=== PATIENT | female | born 1955 | race Caucasian/White ===

== ENCOUNTER 2018-10-26 03:00 | Emergency (ER) | payer OTHER ==
--- NOTE | 2018-10-26 03:09 | ERPHSYRPT ---
- History of Present Illness Time Seen by Provider: 10/26/18 03:05 Source: patient, EMS Exam Limitations: no limitations Physician History: The patient is a 63-year-old female brought in by ambulance from home where she was reportedly very short of breath. She has known COPD. She is on 4 L of supplemental O2 by nasal cannula constantly. When first responders arrived, her O2 sat was 78%. Paramedics arrived and the patient was already on a nonrebreather with O2 sat about 95%. O2 sat on room air dropped down to 78%. The patient was given an albuterol breathing treatment before arrival to ER and is feeling much better now. She is wishing to go home. She was feeling tired yesterday. She denies nausea, vomiting, or diarrhea. She denies chest pain. Her past medical history significant for HTN, CHF, COPD, morbid obesity, and depression. Timing/Duration: today, gradual onset, improved (after breathing treatment) Activities at Onset: rest Severity of Dyspnea-Max: severe Severity of Dyspnea-Current: none Possible Cause: occasional episodes Modifying Factors: Improves With: nothing Associated Symptoms: wheezing Allergies/Adverse Reactions: adhesive tape Allergy (Verified 10/26/18 03:32) rash, breaks out Home Medications: Aspirin [Aspir-Low] 81 mg PO HS 06/10/15 [History] Escitalopram Oxalate [Lexapro] 20 mg PO HS 06/10/15 [History] Hydralazine HCl 10 mg PO BID 06/10/15 [History] Metoprolol Tartrate 50 mg [Lopressor 50 MG] 50 mg PO BID 06/10/15 [History ] Albuterol 2.5 mg/3 ml Neb [Proventil 2.5 mg/3 ml Neb] 2.5 mg IH QID [History] Docusate Sodium 100 mg [Colace 100 MG] 1 tab PO BID 10/26/18 [History] Furosemide 40 mg [Lasix 40 MG] 1 tab PO TID 10/26/18 [History] Gabapentin 300 mg PO HS 10/26/18 [History] Hx Tetanus, Diphtheria Vaccination/Date Given: Yes Hx Influenza Vaccination/Date Given: Yes Hx Pneumococcal Vaccination/Date Given: Yes - Review of Systems Constitutional: No Fever, No Chills Eyes: No Symptoms Ears, Nose, & Throat: No Symptoms Respiratory: Dyspnea, Dyspnea on Exertion (NICHOLS), Wheezing Cardiac: No Chest Pain, No Edema, No Syncope Abdominal/Gastrointestinal: No Abdominal Pain, No Nausea, No Vomiting, No Diarrhea Genitourinary Symptoms: No Dysuria Musculoskeletal: No Back Pain, No Neck Pain Skin: No Rash Neurological: No Dizziness, No Focal Weakness, No Sensory Changes Psychological: No Symptoms Endocrine: No Symptoms Hematologic/Lymphatic: No Symptoms Immunological/Allergic: No Symptoms All Other Systems: Reviewed and Negative - Past Medical History Pertinent Past Medical History: Yes Neurological History: No Pertinent History ENT History: No Pertinent History Cardiac History: Arrhythmia, Coronary Artery Disease, Hypertension Respiratory History: Asthma, Bronchitis, COPD, Pneumonia, Sleep Apnea Endocrine Medical History: No Pertinent History Musculoskeletal History: Arthritis GI Medical History: Hemorrhoids History: Renal Disease Psycho-Social History: Anxiety, Depression Female Reproductive Disorders: No Pertinent History Other Medical History: aspiration vomited- vent and coma 2010. right leg cellulitis in past. kidney disease no dialysis. o2 4 iters at all times - Past Surgical History Past Surgical History: Yes Neuro Surgical History: No Pertinent History Cardiac: No Pertinent History Respiratory: No Pertinent History Gastrointestinal: Hernia Repair Genitourinary: No Pertinent History Musculoskeletal: No Pertinent History Female Surgical History: No Pertinent History Other Surgical History: foot surg - Social History Smoking Status: Current every day smoker How long have you smoked: 48yrs Exposure to second hand smoke: Yes Drug Use: none Patient Lives Alone: No - Nursing Vital Signs Nursing Vital Signs: Initial Vital Signs Temperature 97.4 F 10/26/18 03:20 Pulse Rate 58 L 10/26/18 03:20 Respiratory Rate 18 10/26/18 03:20 Blood Pressure 95/65 10/26/18 03:20 O2 Sat by Pulse Oximetry 97 10/26/18 03:20 Pain Scale Pain Intensity 0 - Physical Exam General Appearance: no apparent distress, obese Eye Exam: PERRL/EOMI Ears, Nose, Throat Exam: hearing grossly normal Neck Exam: normal inspection, supple Respiratory Exam: normal breath sounds, No respiratory distress, No diminished breath sounds, No prolonged expirations, No wheezing Cardiovascular/Chest Exam: normal heart sounds, regular rate/rhythm Abdominal/Gastrointestinal Exam: soft, normal bowel sounds, No tenderness, No distention, No mass Rectal Exam: not done Extremity Exam: non-tender, normal range of motion, normal inspection, no calf tenderness, no pedal edema Neurologic Exam: alert, oriented x 3, cooperative, marine welder II-XII nml as tested, sensation nml, No motor deficits Skin Exam: normal color, warm, No dry SpO2 Interpretation: normal O2 Delivery: Nasal Cannula (4 L) - Course EKG Interpreted by Me: RATE, Sinus Rhythm, NORMAL AXIS, 1st degree AV Block, NORMAL QRS, NORMAL ST-T, Other (T waves in V1 and V2., comp to EKG from .) Ordered Tests: Active Orders 24 hr Category Date Time Status Trainmaster STAT Care 10/26/18 03:13 Active EKG-ER Only STAT Care 10/26/18 03:12 Active IV Insertion STAT Care 10/26/18 03:12 Active Oxygen-ED Only Nasal Cannula 4 lpm Care 10/26/18 03:12 Active Pulse Oximetry (ED) STAT Care 10/26/18 03:12 Active CHEST 2 VIEWS (PA AND LAT) Stat Exams 10/26/18 03:13 Taken CBC W DIFF Stat Lab 10/26/18 03:35 Completed CMP Stat Lab 10/26/18 03:35 Completed Lactic Acid Stat Lab 10/26/18 03:43 Completed NT PRO BNP Stat Lab 10/26/18 03:35 Completed TROPONIN Q3H Lab 10/26/18 03:35 Completed TROPONIN Q3H Lab 10/26/18 06:15 Ordered TROPONIN Q3H Lab 10/26/18 09:15 Ordered TROPONIN Q3H Lab 10/26/18 12:15 Ordered TROPONIN Q3H Lab 10/26/18 15:15 Ordered Peak Expiratory Flow Rate ONCE RT 10/26/18 04:01 Active Respiratory Nebulizer STAT RT 10/26/18 03:14 Completed Respiratory Therapy Assessment DAILY RT 10/26/18 04:01 Active Medication Summary Discontinued Medications Generic Name Dose Route Start Last Admin Trade Name Freq PRN Reason Stop Dose Admin Albuterol/Ipratropium 3 ml 10/26/18 03:12 10/26/18 03:57 Duoneb 0.5-3 Mg/3 Ml Neb IH 10/26/18 03:13 3 ml STAT ONE Administration Albuterol/Ipratropium Confirm 10/26/18 03:56 Duoneb 0.5-3 Mg/3 Ml Neb Administered 10/26/18 03:57 Dose 3 ml IH .STK-MED ONE Methylprednisolone Sodium Succinate 125 mg 10/26/18 03:12 10/26/18 03:34 Solu-Medrol 125 Mg IV 10/26/18 03:13 125 mg STAT ONE Administration Methylprednisolone Sodium Succinate Confirm 10/26/18 03:26 Solu-Medrol 125 Mg Administered 10/26/18 03:27 Dose 125 mg .ROUTE .STK-MED ONE Lab/Rad Data: Laboratory Result Diagrams 10/26/18 03:35 10/26/18 03:35 Laboratory Results 10/26/18 10/26/18 10/26/18 Range/Units 03:43 03:35 03:35 WBC (4.0-10.5) K/mm3 RBC (4.1-5.4) M/mm3 Hgb (12.0-16.0) gm/dl Hct (35-47) % MCV (78-100) fl MCH (26-32) pg MCHC (32-36) g/dl RDW (11.5-14.0) % Plt Count (150-450) K/mm3 MPV (6-9.5) fl Gran % (36.0-66.0) % Eos # (Auto) (0-0.5) Absolute Lymphs (auto) (1.0-4.6) Absolute Monos (auto) (0.0-1.3) Lymphocytes % (24.0-44.0) % Monocytes % (0.0-12.0) % Eosinophils % (0.00-5.0) % Basophils % (0.0-0.4) % Absolute Granulocytes (1.4-6.9) Basophils # (0-0.4) Sodium 142 (137-145) mmol/L Potassium 4.4 (3.5-5.1) mmol/L Chloride 106 (98-107) mmol/L Carbon Dioxide 31 H (22-30) mmol/L Anion Gap 10.0 (5-15) MEQ/L BUN 50 H (7-17) mg/dL Creatinine 2.29 H (0.52-1.04) mg/dL Estimated GFR 23.0 ML/MIN Glucose 132 H (74-106) mg/dL Lactic Acid 0.8 (0.4-2.0) Calcium 8.3 L (8.4-10.2) mg/dL Total Bilirubin 0.50 (0.2-1.3) mg/dL AST 75 H (14-36) U/L ALT 80 H (0-35) U/L Alkaline Phosphatase 75 (38-126) U/L Troponin I 0.312 H* (0.000-0.034) ng/mL NT-Pro-B Natriuret Pep 76253 H (0-900) pg/mL Serum Total Protein 6.8 (6.3-8.2) g/dL Albumin 3.7 (3.5-5.0) g/dL 10/26/18 Range/Units 03:35 WBC 6.1 (4.0-10.5) K/mm3 RBC 3.68 L (4.1-5.4) M/mm3 Hgb 11.8 L (12.0-16.0) gm/dl Hct 38.8 (35-47) % MCV 105.4 H (78-100) fl MCH 32.0 (26-32) pg MCHC 30.4 L (32-36) g/dl RDW 13.5 (11.5-14.0) % Plt Count 126 L (150-450) K/mm3 MPV 10.1 H (6-9.5) fl Gran % 69.8 H (36.0-66.0) % Eos # (Auto) 0.31 (0-0.5) Absolute Lymphs (auto) 1.01 (1.0-4.6) Absolute Monos (auto) 0.49 (0.0-1.3) Lymphocytes % 16.7 L (24.0-44.0) % Monocytes % 8.1 (0.0-12.0) % Eosinophils % 5.1 H (0.00-5.0) % Basophils % 0.3 (0.0-0.4) % Absolute Granulocytes 4.22 (1.4-6.9) Basophils # 0.02 (0-0.4) Sodium (137-145) mmol/L Potassium (3.5-5.1) mmol/L Chloride (98-107) mmol/L Carbon Dioxide (22-30) mmol/L Anion Gap (5-15) MEQ/L BUN (7-17) mg/dL Creatinine (0.52-1.04) mg/dL Estimated GFR ML/MIN Glucose (74-106) mg/dL Lactic Acid (0.4-2.0) Calcium (8.4-10.2) mg/dL Total Bilirubin (0.2-1.3) mg/dL AST (14-36) U/L ALT (0-35) U/L Alkaline Phosphatase (38-126) U/L Troponin I (0.000-0.034) ng/mL NT-Pro-B Natriuret Pep (0-900) pg/mL Serum Total Protein (6.3-8.2) g/dL Albumin (3.5-5.0) g/dL - Progress Progress: improved Blood Culture(s) Obtained: No Antibiotics given: No Counseled pt/family regarding: lab results, diagnosis, rad results - Departure Time of Disposition: 05:34 Departure Disposition: Transfer (transfer to [facility] per Dr Bonilla) Clinical Impression: Elevated troponin, CHF (congestive heart failure), COPD (chronic obstructive pulmonary disease), Renal failure Condition: Stable Critical Care Time: No Referrals: DIANA RICHARDS [Primary Care Provider] - Instructions: Heart Failure, Chronic Obstructive Pulmonary Disease
[2018-10-26] MEDS ORDERED: DUONEB 0.5-3 MG/3 ml Neb IH ONE ×2 (03:12→03:56)
[2018-10-26] MEDS ORDERED: solu-MEDROL 125 MG IV ONE (03:12)
[2018-10-26] MEDS ORDERED: solu-MEDROL 125 MG ONE (03:26)
[2018-10-26 03:37] LABS: BASOPHIL % 0.3 % (0.0-0.4); Basophil (Absolute #) 0.02 (0-0.4); Eosinophil % 5.1 % (0.00-5.0); Eosinophil (Absolute #) 0.31 (0-0.5); Granulocyte Absolute (ANC) 4.22 (1.4-6.9); Granulocytes % 69.8 % (36.0-66.0); Hematocrit 38.8 % (35-47); Hemoglobin 11.8 gm/dl (12.0-16.0); Lymphocyte (Absolute #) 1.01 (1.0-4.6); Lymphocytes % 16.7 % (24.0-44.0); Mean Cell Volume 105.4 fl (78-100); Mean Corpuscular Hgb Concent. 30.4 g/dl (32-36); Mean Platelet Volume 10.1 fl (6-9.5); Monocyte (Absolute #) 0.49 (0.0-1.3); Monocytes % 8.1 % (0.0-12.0); Platelet Count 126 K/mm3 (150-450); Red Blood Count 3.68 M/mm3 (4.1-5.4); Red Cell Distribution Width 13.5 % (11.5-14.0); White Blood Count 6.1 K/mm3 (4.0-10.5)
[2018-10-26 04:07] LABS: ALBUMIN 3.7 g/dL (3.5-5.0); BILIRUBIN,TOTAL 0.5 mg/dL (0.2-1.3); Calcium 8.3 mg/dL (8.4-10.2); Creatinine 1 2.29 mg/dL (0.52-1.04); Potassium 4.4 mmol/L (3.5-5.1); Total Protein 6.8 g/dL (6.3-8.2)
[2018-10-26] MEDS ORDERED: BABY ASPIRIN 81 MG CHEW PO ONE (05:40)
[2018-10-26] MEDS ORDERED: BABY ASPIRIN 81 MG CHEW ONE (05:45)
[2018-10-26 06:44] VITALS: BP 161/58; PULSE 56; O2SAT 94
--- NOTE | 2018-10-26 09:09 | XRAY ---
Indication: Short of breath. Abnormal EKG. Comparison: September 30, 2016. PA/lateral chest demonstrates large left effusion/atelectasis occupying at least 50% of the hemithorax but slightly less than before. Right lung is clear. Heart remains enlarged. Stable mediastinal/hilar calcified nodes. Bony thorax intact again with mild degenerative changes and dextroscoliosis. Impression: Cardiomegaly with large left effusion/atelectasis. Comment: Preliminary interpretation was made by [facility]. No discrepancy.
== END 2018-10-26 07:23 | disposition short-term general hospital (02) ==
LOC: ED 03:00
DX: R74.8 Abnormal levels of other serum enzymes (principal); I50.9 Heart failure, unspecified; J44.9 Chronic obstructive pulmonary disease, unspecified; N19 Unspecified kidney failure; I10 Essential (primary) hypertension; I25.10 Atherosclerotic heart disease of native coronary artery without angina pectoris; J45.909 Unspecified asthma, uncomplicated; G47.30 Sleep apnea, unspecified; M19.90 Unspecified osteoarthritis, unspecified site; F41.9 Anxiety disorder, unspecified; F32.9 Major depressive disorder, single episode, unspecified; E66.01 Morbid (severe) obesity due to excess calories; Z72.0 Tobacco use; Z79.899 Other long term (current) drug therapy; Z99.2 Dependence on renal dialysis
CPT/HCPCS: 36415; 71046; 80053; 83605; 83880; 84484; 85025; 93005; 93041; 94150; 94640; 96374; 99285; J2930; A9270-GY

== ENCOUNTER 2018-12-27 14:11 | Emergency (ER) | payer OTHER ==
[2018-12-27] MEDS ORDERED: Nitrostat 0.4 MG (ED) SL ONE ×2 (15:06→16:09)
[2018-12-27] MEDS ORDERED: NITRO-BID 2% UD PACKETS TOP ONE (15:06)
[2018-12-27] MEDS ORDERED: Zithromax 500 MG/ 250 ML NaCl Premix 500 MG/250 ML IVPB IV STA (15:08)
[2018-12-27] MEDS ORDERED: DUONEB 0.5-3 MG/3 ml Neb IH ONE ×2 (15:08→15:23)
[2018-12-27] MEDS ORDERED: ROCEPHIN 1 Gm-D5w 50 ml Bag** 1 G/50 ML IVPB IV STA (15:08)
--- NOTE | 2018-12-27 15:11 | ERPHSYRPT ---
- History of Present Illness Time Seen by Provider: 12/27/18 14:30 Historian: patient Exam Limitations: clinical condition Patient Subjective Stated Complaint: c/o chest pain for a couple of days. was at [facility] 1-1 1/2 months ago for a DVT in her Left leg. now experiencing chest pain. also c/o cough, prod with white phlegm. Triage Nursing Assessment: pt skin pale, warm and dry, resp easy. obese female with o2 @ 4L per n/c - portable o2 sat 94%. c/o CP 9/10, left upper chest pain that radiates into her back. moist cough noted. speech clear, A/O X4. Lungs CTA Physician History: PATIENT WITH A HISTORY OF DVT, PULMONARY EMBOLISM, COPD COMPLAINS OF LEFT SIDED CHEST PAIN X 3 DAYS ASSOCIATED WITH A PRODUCTIVE COUGH. STATES PAIN IS SHARP IN LEFT LATERAL CHEST EXACERBATED UPON INSPIRATION AND MOTION OF LEFT ARM. DIAGNOSED WITH PULMONARY EMBOLISM 1 MONTH AGO AND PLACED ONTO ELIQUIS. Timing/Duration: day(s) Activities at Onset: none Quality: sharpness, stabbing Location: other (LEFT LATERAL CHEST) Severity of Pain-Max: moderate Severity of Pain-Current: mild Modifying Factors: Improves With: breathing, coughing Associated Symptoms: other (MOVEMENT OF LEFT ARM) Prior Chest Pain/Cardiac Workup: pulmonary embolism Nitro Today/Relief: 0.4 mg x 2 Aspirin Treatment Today: no aspirin today Allergies/Adverse Reactions: adhesive tape Allergy (Verified 10/26/18 03:32) rash, breaks out Home Medications: Aspirin [Aspir-Low] 81 mg PO HS 06/10/15 [History] Escitalopram Oxalate [Lexapro] 20 mg PO HS 06/10/15 [History] Albuterol 2.5 mg/3 ml Neb [Proventil 2.5 mg/3 ml Neb] 2.5 mg IH QIDPRN PRN 05/21/16 [History] Docusate Sodium 100 mg [Colace 100 MG] 1 tab PO DAILY 10/26/18 [History] Furosemide 40 mg [Lasix 40 MG] 20 mg PO DAILY 10/26/18 [History] Gabapentin 300 mg PO HS 10/26/18 [History] Amlodipine Besylate 5 mg PO DAILY 12/27/18 [History] Apixaban [Eliquis] 5 mg PO BID 12/27/18 [History] Fluticasone/Vilanterol [Breo Ellipta 100-25 Mcg INH] 1 mcg IH DAILY 12/27/18 [ History] Hx Tetanus, Diphtheria Vaccination/Date Given: Yes Hx Influenza Vaccination/Date Given: No Hx Pneumococcal Vaccination/Date Given: No Immunizations Up to Date: Yes - Past Medical History Pertinent Past Medical History: Yes Neurological History: No Pertinent History ENT History: No Pertinent History Cardiac History: Arrhythmia, Coronary Artery Disease, Hypertension Respiratory History: Asthma, Bronchitis, COPD, Pneumonia, Sleep Apnea Endocrine Medical History: No Pertinent History Musculoskeletal History: Arthritis GI Medical History: Hemorrhoids History: Renal Disease Psycho-Social History: Anxiety, Depression Female Reproductive Disorders: No Pertinent History Other Medical History: aspiration vomited- vent and coma 2010. right leg cellulitis in past. kidney disease no dialysis. o2 4 iters at all times - Past Surgical History Past Surgical History: Yes Neuro Surgical History: No Pertinent History Cardiac: No Pertinent History Respiratory: No Pertinent History Gastrointestinal: Hernia Repair Genitourinary: No Pertinent History Musculoskeletal: No Pertinent History Female Surgical History: No Pertinent History Other Surgical History: foot surg - Social History Smoking Status: Current every day smoker How long have you smoked: 48yrs Exposure to second hand smoke: Yes Drug Use: none Patient Lives Alone: No - Female History Hx Now: No - Nursing Vital Signs Nursing Vital Signs: Initial Vital Signs Temperature 98.7 F 12/27/18 14:12 Pulse Rate 68 12/27/18 14:12 Respiratory Rate 15 12/27/18 14:12 Blood Pressure 139/63 12/27/18 14:12 O2 Sat by Pulse Oximetry 94 L 12/27/18 14:12 Pain Scale Pain Intensity 5 - Physical Exam General Appearance: no apparent distress, alert Eye Exam: PERRL/EOMI, eyes nml inspection Ears, Nose, Throat Exam: normal ENT inspection, moist mucous membranes Neck Exam: normal inspection, non-tender, supple, full range of motion Respiratory Exam: normal breath sounds, chest tenderness (MARKED TENDERNESS LEFT LATERAL CHEST WALL. LEFT MID CLAVICULAR LINE T-3 TO T-4), lungs clear, No respiratory distress Cardiovascular Exam: regular rate/rhythm, normal heart sounds Gastrointestinal/Abdomen Exam: soft, normal bowel sounds, No tenderness, No mass Back Exam: normal inspection, No CVA tenderness, No vertebral tenderness Extremity Exam: normal inspection, normal range of motion Neurologic Exam: alert, oriented x 3, cooperative, normal mood/affect, sensation nml, No motor deficits Skin Exam: normal color, warm, dry SpO2 Interpretation: normal SpO2: 94 - Course EKG Interpreted by Me: RATE, NORMAL AXIS, 1st degree AV Block ([id number]) Ordered Tests: Active Orders 24 hr Category Date Time Status Manager Of Organizational Development STAT Care 12/27/18 15:06 Active EKG-ER Only STAT Care 12/27/18 15:06 Active IV Insertion STAT Care 12/27/18 15:06 Active Oxygen-ED Only Nasal Cannula 2 lpm Care 12/27/18 15:06 Active CHEST 1 VIEW (PORTABLE) Stat Exams 12/27/18 15:06 Completed BLOOD CULTURE Stat Lab 12/27/18 16:23 Received CBC W DIFF Stat Lab 12/27/18 14:45 Completed CMP Routine Lab 12/27/18 14:45 Completed MAGNESIUM Routine Lab 12/27/18 14:45 Completed NT PRO BNP Routine Lab 12/27/18 14:45 Completed PROTIME WITH INR Stat Lab 12/27/18 14:45 Completed TROPONIN Q3H Lab 12/27/18 14:45 Completed TROPONIN Q3H Lab 12/27/18 18:50 Completed TROPONIN Q3H Lab 12/27/18 21:15 Ordered TROPONIN Q3H Lab 12/28/18 00:15 Ordered TROPONIN Q3H Lab 12/28/18 03:15 Ordered Peak Expiratory Flow Rate ONCE RT 12/27/18 15:30 Active Respiratory Nebulizer STAT RT 12/27/18 15:09 Completed Respiratory Therapy Assessment DAILY RT 12/27/18 15:29 Active Medication Summary Generic Name Dose Route Start Last Admin Trade Name Freq PRN Reason Stop Dose Admin Sodium Chloride 1,000 mls @ 20 mls/hr 12/27/18 15:15 12/27/18 16:13 Sodium Chloride 0.9% 1000 Ml IV 01/26/19 15:14 20 mls/hr .Q24H DARON Administration Discontinued Medications Generic Name Dose Route Start Last Admin Trade Name Freq PRN Reason Stop Dose Admin Albuterol/Ipratropium 3 ml 12/27/18 15:08 12/27/18 15:26 Duoneb 0.5-3 Mg/3 Ml Neb IH 12/27/18 15:09 3 ml STAT ONE Administration Albuterol/Ipratropium Confirm 12/27/18 15:23 Duoneb 0.5-3 Mg/3 Ml Neb Administered 12/27/18 15:24 Dose 3 ml IH .STK-MED ONE Ceftriaxone Sodium/Dextrose 1 g in 50 mls @ 100 mls/hr 12/27/18 15:08 18:08 Rocephin 1 Gm-D5w 50 Ml Bag IV 12/27/18 15:37 Infused STAT STA Infusion Azithromycin 500 mg in 250 mls @ 250 mls/hr 12/27/18 15:08 12/27/18 18:09 Zithromax 500 Mg/ 250 Ml Nacl Premix IV 12/27/18 16:07 Infused STAT STA Infusion Azithromycin Confirm 12/27/18 16:09 Zithromax 500 Mg/ 250 Ml Nacl Premix Administered 12/27/18 16:10 Dose 500 mg in 250 mls @ ud IV .STK-MED ONE Ceftriaxone Sodium/Dextrose Confirm 12/27/18 16:09 Rocephin 1 Gm-D5w 50 Ml Bag Administered 12/27/18 16:10 Dose 1 g in 50 mls @ ud IV .STK-MED ONE Nitroglycerin 0.4 mg 12/27/18 15:06 12/27/18 16:11 Nitrostat 0.4 Mg (Ed) SL 12/27/18 15:07 0.4 mg STAT ONE Administration Nitroglycerin 1 gm 12/27/18 15:06 12/27/18 16:11 Nitro-Bid 2% Ud Packets TOP 12/27/18 15:07 1 gm STAT ONE Administration Nitroglycerin Confirm 12/27/18 16:08 Nitro-Bid 2% Ud Packets Administered 12/27/18 16:09 Dose 1 gm .ROUTE .STK-MED ONE Nitroglycerin Confirm 12/27/18 16:09 Nitrostat 0.4 Mg (Ed) Administered 12/27/18 16:10 Dose 0.4 mg SL .STK-MED ONE Lab/Rad Data: Laboratory Result Diagrams 12/27/18 14:45 12/27/18 14:45 Laboratory Results 12/27/18 12/27/18 12/27/18 Range/Units 18:50 15:52 14:45 WBC (4.0-10.5) K/mm3 RBC (4.1-5.4) M/mm3 Hgb (12.0-16.0) gm/dl Hct (35-47) % MCV (78-100) fl MCH (26-32) pg MCHC (32-36) g/dl RDW (11.5-14.0) % Plt Count (150-450) K/mm3 MPV (6-9.5) fl Gran % (36.0-66.0) % Eos # (Auto) (0-0.5) Absolute Lymphs (auto) (1.0-4.6) Absolute Monos (auto) (0.0-1.3) Lymphocytes % (24.0-44.0) % Monocytes % (0.0-12.0) % Eosinophils % (0.00-5.0) % Basophils % (0.0-0.4) % Absolute Granulocytes (1.4-6.9) Basophils # (0-0.4) PT (9.95-12.35) SECONDS INR (0.8-3.0) Sodium 137 (137-145) mmol/L Potassium 4.7 (3.5-5.1) mmol/L Chloride 96 L (98-107) mmol/L Carbon Dioxide 31 H (22-30) mmol/L Anion Gap 13.6 (5-15) MEQ/L BUN 37 H (7-17) mg/dL Creatinine 2.35 H (0.52-1.04) mg/dL Estimated GFR 22.3 ML/MIN Glucose 85 (74-106) mg/dL Calcium 8.4 (8.4-10.2) mg/dL Magnesium 2.2 (1.6-2.3) mg/dL Total Bilirubin 0.90 (0.2-1.3) mg/dL AST 18 (14-36) U/L ALT 8 (0-35) U/L Alkaline Phosphatase 51 (38-126) U/L Troponin I 0.033 0.027 (0.000-0.034) ng/mL NT-Pro-B Natriuret Pep 2630 H (0-900) pg/mL Serum Total Protein 6.8 (6.3-8.2) g/dL Albumin 3.2 L (3.5-5.0) g/dL Influenza Type A Ag NEGATIVE (NEGATIVE) Influenza Type B Ag NEGATIVE (NEGATIVE) RSV (PCR) NEGATIVE (Negative) 12/27/18 12/27/18 Range/Units 14:45 14:45 WBC 10.4 (4.0-10.5) K/mm3 RBC 3.19 L (4.1-5.4) M/mm3 Hgb 10.5 L (12.0-16.0) gm/dl Hct 33.6 L (35-47) % MCV 105.3 H (78-100) fl MCH 32.9 H (26-32) pg MCHC 31.3 L (32-36) g/dl RDW 12.2 (11.5-14.0) % Plt Count 212 (150-450) K/mm3 MPV 10.8 H (6-9.5) fl Gran % 79.9 H (36.0-66.0) % Eos # (Auto) 0.43 (0-0.5) Absolute Lymphs (auto) 0.82 L (1.0-4.6) Absolute Monos (auto) 0.83 (0.0-1.3) Lymphocytes % 7.9 L (24.0-44.0) % Monocytes % 8.0 (0.0-12.0) % Eosinophils % 4.1 (0.00-5.0) % Basophils % 0.1 (0.0-0.4) % Absolute Granulocytes 8.31 H (1.4-6.9) Basophils # 0.01 (0-0.4) PT 19.7 H (9.95-12.35) SECONDS INR 1.68 (0.8-3.0) Sodium (137-145) mmol/L Potassium (3.5-5.1) mmol/L Chloride (98-107) mmol/L Carbon Dioxide (22-30) mmol/L Anion Gap (5-15) MEQ/L BUN (7-17) mg/dL Creatinine (0.52-1.04) mg/dL Estimated GFR ML/MIN Glucose (74-106) mg/dL Calcium (8.4-10.2) mg/dL Magnesium (1.6-2.3) mg/dL Total Bilirubin (0.2-1.3) mg/dL AST (14-36) U/L ALT (0-35) U/L Alkaline Phosphatase (38-126) U/L Troponin I (0.000-0.034) ng/mL NT-Pro-B Natriuret Pep (0-900) pg/mL Serum Total Protein (6.3-8.2) g/dL Albumin (3.5-5.0) g/dL Influenza Type A Ag (NEGATIVE) Influenza Type B Ag (NEGATIVE) RSV (PCR) (Negative) - Progress Air Movement: fair Blood Culture(s) Obtained: Yes Antibiotics given: Yes Discussed with : Other (DISCUSSED WITH DR MARTE AT 1856 ACCEPTS TRANSFER TO [facility]) - Departure Time of Disposition: 20:45 Departure Disposition: Transfer Clinical Impression: ACUTE DYSPNEA, EXACERBATION COPD, LEFT PLERUAL EFFUSION Condition: Stable Critical Care Time: No Referrals: DIANA RICHARDS [Primary Care Provider] -
[2018-12-27] MEDS ORDERED: Sodium Chloride 0.9% 1000 ML 1,000 ML IV SCH (15:15)
[2018-12-27 15:25] LABS: BASOPHIL % 0.1 % (0.0-0.4); Basophil (Absolute #) 0.01 (0-0.4); Eosinophil % 4.1 % (0.00-5.0); Eosinophil (Absolute #) 0.43 (0-0.5); Granulocyte Absolute (ANC) 8.31 (1.4-6.9); Granulocytes % 79.9 % (36.0-66.0); Hematocrit 33.6 % (35-47); Hemoglobin 10.5 gm/dl (12.0-16.0); Lymphocyte (Absolute #) 0.82 (1.0-4.6); Lymphocytes % 7.9 % (24.0-44.0); Mean Cell Volume 105.3 fl (78-100); Mean Corpuscular Hemoglobin 32.9 pg (26-32); Mean Corpuscular Hgb Concent. 31.3 g/dl (32-36); Mean Platelet Volume 10.8 fl (6-9.5); Monocyte (Absolute #) 0.83 (0.0-1.3); Platelet Count 212 K/mm3 (150-450); Red Blood Count 3.19 M/mm3 (4.1-5.4); Red Cell Distribution Width 12.2 % (11.5-14.0); White Blood Count 10.4 K/mm3 (4.0-10.5)
[2018-12-27 15:40] LABS: ALBUMIN 3.2 g/dL (3.5-5.0); ANION GAP 13.6 MEQ/L (5-15); BILIRUBIN,TOTAL 0.9 mg/dL (0.2-1.3); Calcium 8.4 mg/dL (8.4-10.2); Creatinine 1 2.35 mg/dL (0.52-1.04); MAGNESIUM 2.2 mg/dL (1.6-2.3); Potassium 4.7 mmol/L (3.5-5.1); TROPONIN 0.027 ng/mL (0.000-0.034); Total Protein 6.8 g/dL (6.3-8.2)
[2018-12-27] MEDS ORDERED: NITRO-BID 2% UD PACKETS ONE (16:08)
[2018-12-27] MEDS ORDERED: ROCEPHIN 1 Gm-D5w 50 ml Bag** 1 G/50 ML IVPB IV ONE (16:09)
[2018-12-27] MEDS ORDERED: Zithromax 500 MG/ 250 ML NaCl Premix 500 MG/250 ML IVPB IV ONE (16:09)
[2018-12-27] MEDS ORDERED: Sodium Chloride 0.9% 1000 ML 1,000 ML ONE (16:09)
--- NOTE | 2018-12-27 16:10 | XRAY ---
Indication: Left-sided chest pain. Comparison: October 26, 2018. Portable chest again demonstrates large left effusion/atelectasis occupying 50% of hemithorax. Right lung remains clear. Heart remains enlarged. No new cardiopulmonary abnormalities.
[2018-12-27 16:30] LABS: INR 1.68 (0.8-3.0); PROTIME 19.7 SECONDS (9.95-12.35)
[2018-12-27 16:56] LABS: INFLUENZA A NEGATIVE (NEGATIVE); INFLUENZA B NEGATIVE (NEGATIVE); RESPIRATORY SYNCTIAL VIRUS NEGATIVE (Negative)
[2018-12-27 19:43] VITALS: BP 133/54; PULSE 78
[2018-12-27 20:45] VITALS: O2SAT 94
== END 2018-12-27 20:45 | disposition short-term general hospital (02) ==
LOC: ED 14:11
DX: R06.00 Dyspnea, unspecified (principal); J44.1 Chronic obstructive pulmonary disease with (acute) exacerbation; J90 Pleural effusion, not elsewhere classified; Z79.899 Other long term (current) drug therapy; I10 Essential (primary) hypertension; I25.10 Atherosclerotic heart disease of native coronary artery without angina pectoris; J45.909 Unspecified asthma, uncomplicated; G47.30 Sleep apnea, unspecified; M19.90 Unspecified osteoarthritis, unspecified site; F41.8 Other specified anxiety disorders; N28.9 Disorder of kidney and ureter, unspecified
CPT/HCPCS: 36000; 36415; 71045; 80053; 83735; 83880; 84484; 85025; 85610; 87040; 87631; 93005; 93041; 94150; 94640; 96360; 96361; 96365; 96368; 99285; J0456; J0696; A9270-GY

== ENCOUNTER 2018-12-30 18:47 | Emergency (ER) | payer OTHER ==
--- NOTE | 2018-12-30 19:18 | ERPHSYRPT ---
- History of Present Illness Time Seen by Provider: 12/30/18 19:10 Source: patient, family Exam Limitations: no limitations Patient Subjective Stated Complaint: pt seen at this facility thursday12/27/18 for shortness of breath, large plueral effusion and weakness, pt was transported to [facility] where she was discharged from their ER at 0100 on 12/28/18. pt returns today with increased weakness. today pt reports abdominal pain she states is related to previous hernia repair. Triage Nursing Assessment: pt is aox3, pt appears weak, pt unable to transfer from to [facility]. pt low grade temp at 100.7, pt resps are easy non labored, bilateral wheezes are heard upon auscultation, intermittent productive cough noted upon exam with small amount of clear sputum. pt radial pulses strong and regular, heart sounds strong and regular, pt abd obese, bowel sounds present and normoactive x4. cap refill < 3 seconds, slight non pitting edema noted to BLE, pedal pulses strong and equal, pt skin pale, warm to touch. pt mucous membranes appear dry. Physician History: 63 y/o morbidly obese white female with h/o htn, renal insufficiency, chf, left pleural effusion, copd presents to ED with worsening weakness, soa and right side abd pain. pt seen in this ED 12/27/18 with dx of copd exacerbation and left pleural effusion. pt denies cp. pt has had a dvt in past. no leg pain or swelling. pt is on eliquis, amlodipine, albuterol neb, lexapro, and lasix. pt and family want to be transferred to [facility] Timing/Duration: day(s) (several days) Severity: moderate Modifying Factors: Improves With: rest Associated Symptoms: abdominal pain (right side), shortness of breath, No nausea , No vomiting Allergies/Adverse Reactions: adhesive tape Allergy (Verified 12/30/18 18:59) rash, breaks out Home Medications: Aspirin [Aspir-Low] 81 mg PO HS 06/10/15 [History] Escitalopram Oxalate [Lexapro] 20 mg PO HS 06/10/15 [History] Albuterol 2.5 mg/3 ml Neb [Proventil 2.5 mg/3 ml Neb] 2.5 mg IH QIDPRN PRN 05/21/16 [History] Docusate Sodium 100 mg [Colace 100 MG] 1 tab PO DAILY 10/26/18 [History] Furosemide 40 mg [Lasix 40 MG] 20 mg PO DAILY 10/26/18 [History] Gabapentin 300 mg PO HS 10/26/18 [History] Amlodipine Besylate 5 mg PO DAILY 12/27/18 [History] Apixaban [Eliquis] 5 mg PO BID 12/27/18 [History] Fluticasone/Vilanterol [Breo Ellipta 100-25 Mcg INH] 1 mcg IH DAILY 12/27/18 [ History] Hx Tetanus, Diphtheria Vaccination/Date Given: No Hx Influenza Vaccination/Date Given: Yes Hx Pneumococcal Vaccination/Date Given: Yes Immunizations Up to Date: Yes - Review of Systems Constitutional: Weakness Eyes: No Symptoms Ears, Nose, & Throat: No Symptoms Respiratory: Dyspnea, No Cough, No Stridor, No Wheezing Cardiac: No Symptoms Abdominal/Gastrointestinal: Abdominal Pain (right side), No Nausea, No Vomiting , No Diarrhea Genitourinary Symptoms: No Symptoms, No Dysuria, No Frequency, No Hematuria Musculoskeletal: No Symptoms Skin: No Symptoms Neurological: No Symptoms Psychological: No Symptoms Endocrine: No Symptoms Hematologic/Lymphatic: No Symptoms Immunological/Allergic: No Symptoms All Other Systems: Reviewed and Negative - Past Medical History Pertinent Past Medical History: Yes Neurological History: No Pertinent History ENT History: No Pertinent History Cardiac History: Arrhythmia, Coronary Artery Disease, Hypertension Respiratory History: Asthma, Bronchitis, COPD, Pneumonia, Sleep Apnea Endocrine Medical History: No Pertinent History Musculoskeletal History: Arthritis GI Medical History: Hemorrhoids History: Renal Disease Psycho-Social History: Anxiety, Depression Female Reproductive Disorders: No Pertinent History Other Medical History: aspiration vomited- vent and coma 2010. right leg cellulitis in past. kidney disease no dialysis. o2 4 iters at all times - Past Surgical History Past Surgical History: Yes Neuro Surgical History: No Pertinent History Cardiac: No Pertinent History Respiratory: No Pertinent History Gastrointestinal: Hernia Repair Genitourinary: No Pertinent History Musculoskeletal: No Pertinent History Female Surgical History: No Pertinent History Other Surgical History: foot surg - Social History Smoking Status: Current every day smoker How long have you smoked: 48yrs Exposure to second hand smoke: Yes Drug Use: none Patient Lives Alone: No - Female History Hx Now: No - Nursing Vital Signs Nursing Vital Signs: Initial Vital Signs Temperature 100.7 F 12/30/18 18:49 Pulse Rate 72 12/30/18 18:49 Respiratory Rate 26 H 12/30/18 18:49 Blood Pressure 139/52 12/30/18 18:49 O2 Sat by Pulse Oximetry 96 12/30/18 18:49 Pain Scale Pain Intensity 0 - Physical Exam General Appearance: moderate distress, alert, obese Eye Exam: PERRL/EOMI Ears, Nose, Throat Exam: normal ENT inspection, moist mucous membranes Neck Exam: normal inspection, non-tender, supple, full range of motion Respiratory Exam: airway intact, diminished breath sounds (on left), No chest tenderness, No accessory muscle use, No rhonchi, No wheezing, No stridor Cardiovascular Exam: regular rate/rhythm, normal heart sounds, normal peripheral pulses Gastrointestinal/Abdomen Exam: soft, normal bowel sounds, tenderness (right side ), guarding, No rebound Pelvic Exam: not done Rectal Exam: not done Back Exam: normal inspection, normal range of motion, No CVA tenderness, No vertebral tenderness Extremity Exam: normal inspection, normal range of motion, pelvis stable Neurologic Exam: alert, oriented x 3, cooperative, charrer II-XII nml as tested Skin Exam: normal color, warm, dry Lymphatic Exam: No adenopathy SpO2 Interpretation: normal SpO2: 96 O2 Delivery: Room Air - Course Nursing assessment & vital signs reviewed: Yes EKG Interpreted by Me: RATE (70), Sinus Rhythm, 1st degree AV Block, Non- specific ST Changes, Other (no change from comparison EKGs dated 10/26/18 and ) Ordered Tests: Active Orders 24 hr Category Date Time Status Catheter-[place] STAT Care 12/30/18 19:20 Active EKG-ER Only STAT Care 12/30/18 19:20 Active IV Insertion STAT Care 12/30/18 19:20 Active Oxygen-ED Only Nasal Cannula 4 lpm Care 12/30/18 21:29 Active ABDOMEN AND PELVIS W/0 CONTRAS [CT] Stat Exams 12/30/18 19:19 Taken CHEST 1 VIEW (PORTABLE) Stat Exams 12/30/18 19:19 Taken AMYLASE Stat Lab 12/30/18 19:31 Completed CBC W DIFF Stat Lab 12/30/18 19:31 Completed CMP Stat Lab 12/30/18 19:31 Completed CULTURE,URINE Stat Lab 12/30/18 19:40 Received D-DIMER QUANTITATION Stat Lab 12/30/18 19:31 Completed LIPASE Stat Lab 12/30/18 19:31 Completed Lactic Acid Stat Lab 12/30/18 19:18 Completed NT PRO BNP Stat Lab 12/30/18 19:31 Completed TROPONIN Q3H Lab 12/30/18 19:32 Completed TROPONIN Q3H Lab 12/30/18 22:30 Ordered TROPONIN Q3H Lab 12/31/18 01:30 Ordered TROPONIN Q3H Lab 12/31/18 04:30 Ordered TROPONIN Q3H Lab 12/31/18 07:30 Ordered UA W/RFX UR CULTURE Stat Lab 12/30/18 19:40 Completed Medication Summary Generic Name Dose Route Start Last Admin Trade Name Freq PRN Reason Stop Dose Admin Sodium Chloride 1,000 mls @ 100 mls/hr 12/30/18 19:30 12/30/18 19:33 Sodium Chloride 0.9% 1000 Ml IV 01/29/19 19:29 100 mls/hr .Q10H DARON Administration Discontinued Medications Generic Name Dose Route Start Last Admin Trade Name Freq PRN Reason Stop Dose Admin Furosemide 40 mg 12/30/18 21:44 12/30/18 22:13 Lasix 40 Mg/4 Ml IV 12/30/18 21:45 40 mg STAT ONE Administration Furosemide Confirm 12/30/18 22:11 Lasix 40 Mg/4 Ml Administered 12/30/18 22:12 Dose 40 mg .ROUTE .STK-MED ONE Metronidazole 500 mg in 100 mls @ 200 mls/hr 12/30/18 21:30 12/30/18 22:08 Flagyl 500 Mg Ivpb IV 12/30/18 21:59 Infused STAT STA Infusion Metronidazole Confirm 12/30/18 21:34 Flagyl 500 Mg Ivpb Administered 12/30/18 21:35 Dose 500 mg in 100 mls @ ud IV .STK-MED ONE Morphine Sulfate 4 mg 12/30/18 21:16 12/30/18 21:25 Morphine Sulfate 4 Mg Inj IV 12/30/18 21:17 4 mg STAT ONE Administration Morphine Sulfate Confirm 12/30/18 21:22 Morphine Sulfate 4 Mg Inj Administered 12/30/18 21:23 Dose 4 mg .ROUTE .STK-MED ONE Ondansetron HCl 4 mg 12/30/18 19:20 12/30/18 19:33 Zofran 4 Mg/2 Ml Vial IV 12/30/18 19:21 4 mg STAT ONE Administration Ondansetron HCl Confirm 12/30/18 19:27 Zofran 4 Mg/2 Ml Vial Administered 12/30/18 19:28 Dose 4 mg .ROUTE .STK-MED ONE Lab/Rad Data: Laboratory Result Diagrams 12/30/18 19:31 12/30/18 19:31 Laboratory Results 12/30/18 12/30/18 12/30/18 Range/Units 19:40 19:32 19:31 WBC (4.0-10.5) K/mm3 RBC (4.1-5.4) M/mm3 Hgb (12.0-16.0) gm/dl Hct (35-47) % MCV (78-100) fl MCH (26-32) pg MCHC (32-36) g/dl RDW (11.5-14.0) % Plt Count (150-450) K/mm3 MPV (6-9.5) fl Gran % (36.0-66.0) % Eos # (Auto) (0-0.5) Absolute Lymphs (auto) (1.0-4.6) Absolute Monos (auto) (0.0-1.3) Lymphocytes % (24.0-44.0) % Monocytes % (0.0-12.0) % Eosinophils % (0.00-5.0) % Basophils % (0.0-0.4) % Absolute Granulocytes (1.4-6.9) Basophils # (0-0.4) D-Dimer 5607 H* (215-500) ng/mL Sodium (137-145) mmol/L Potassium (3.5-5.1) mmol/L Chloride (98-107) mmol/L Carbon Dioxide (22-30) mmol/L Anion Gap (5-15) MEQ/L BUN (7-17) mg/dL Creatinine (0.52-1.04) mg/dL Estimated GFR ML/MIN Glucose (74-106) mg/dL Lactic Acid (0.4-2.0) Calcium (8.4-10.2) mg/dL Total Bilirubin (0.2-1.3) mg/dL AST (14-36) U/L ALT (0-35) U/L Alkaline Phosphatase (38-126) U/L Troponin I 0.065 H* (0.000-0.034) ng/mL NT-Pro-B Natriuret Pep (0-900) pg/mL Serum Total Protein (6.3-8.2) g/dL Albumin (3.5-5.0) g/dL Amylase (30-110) U/L Lipase (23-300) U/L Urine Color YELLOW (YELLOW) Urine Appearance CLOUDY (CLEAR) Urine pH 5.0 (5-6) Ur Specific [place] 1.009 (1.005-1.025) Urine Protein 30 (Negative) Urine Ketones TRACE (NEGATIVE) Urine Blood MODERATE (0-5) Refugio/ul Urine Nitrite NEGATIVE (NEGATIVE) Urine Bilirubin NEGATIVE (NEGATIVE) Urine Urobilinogen 2 (0-1) mg/dL Ur Leukocyte Esterase NEGATIVE (NEGATIVE) Urine WBC (Auto) 3-5 (0-5) /HPF Urine RBC (Auto) 3-5 (0-2) /HPF U Hyaline Cast (Auto) 0-2 (0-2) /LPF U Epithel Cells (Auto) RARE (FEW) /HPF Urine Bacteria (Auto) RARE (NEGATIVE) /HPF Other Casts (Auto) NEGATIVE (NEGATIVE) /LPF Urine Culture Reflexed YES (NO) Urine Glucose NEGATIVE (NEGATIVE) mg/dL 12/30/18 12/30/18 12/30/18 Range/Units 19:31 19:31 19:18 WBC 11.3 H (4.0-10.5) K/mm3 RBC 3.04 L (4.1-5.4) M/mm3 Hgb 9.8 L (12.0-16.0) gm/dl Hct 31.5 L (35-47) % MCV 103.6 H (78-100) fl MCH 32.2 H (26-32) pg MCHC 31.1 L (32-36) g/dl RDW 12.2 (11.5-14.0) % Plt Count 193 (150-450) K/mm3 MPV 10.4 H (6-9.5) fl Gran % 82.6 H (36.0-66.0) % Eos # (Auto) 0.42 (0-0.5) Absolute Lymphs (auto) 0.72 L (1.0-4.6) Absolute Monos (auto) 0.81 (0.0-1.3) Lymphocytes % 6.4 L (24.0-44.0) % Monocytes % 7.2 (0.0-12.0) % Eosinophils % 3.7 (0.00-5.0) % Basophils % 0.1 (0.0-0.4) % Absolute Granulocytes 9.34 H (1.4-6.9) Basophils # 0.01 (0-0.4) D-Dimer (215-500) ng/mL Sodium 132 L (137-145) mmol/L Potassium 4.2 (3.5-5.1) mmol/L Chloride 93 L (98-107) mmol/L Carbon Dioxide 30 (22-30) mmol/L Anion Gap 13.2 (5-15) MEQ/L BUN 40 H (7-17) mg/dL Creatinine 2.50 H (0.52-1.04) mg/dL Estimated GFR 20.7 ML/MIN Glucose 86 (74-106) mg/dL Lactic Acid 1.0 (0.4-2.0) Calcium 8.7 (8.4-10.2) mg/dL Total Bilirubin 0.70 (0.2-1.3) mg/dL AST 16 (14-36) U/L ALT 9 (0-35) U/L Alkaline Phosphatase 68 (38-126) U/L Troponin I (0.000-0.034) ng/mL NT-Pro-B Natriuret Pep 3710 H (0-900) pg/mL Serum Total Protein 6.5 (6.3-8.2) g/dL Albumin 3.0 L (3.5-5.0) g/dL Amylase 36 (30-110) U/L Lipase 27 (23-300) U/L Urine Color (YELLOW) Urine Appearance (CLEAR) Urine pH (5-6) Ur Specific Buckley (1.005-1.025) Urine Protein (Negative) Urine Ketones (NEGATIVE) Urine Blood (0-5) Refugio/ul Urine Nitrite (NEGATIVE) Urine Bilirubin (NEGATIVE) Urine Urobilinogen (0-1) mg/dL Ur Leukocyte Esterase (NEGATIVE) Urine WBC (Auto) (0-5) /HPF Urine RBC (Auto) (0-2) /HPF U Hyaline Cast (Auto) (0-2) /LPF U Epithel Cells (Auto) (FEW) /HPF Urine Bacteria (Auto) (NEGATIVE) /HPF Other Casts (Auto) (NEGATIVE) /LPF Urine Culture Reflexed (NO) Urine Glucose (NEGATIVE) mg/dL - Progress Progress: improved, re-examined Progress Note: 12/30/18 22:[address] chauhan at [facility]. reviewed pt condition, hx, lab, ekg and xray findings. he accepts pt in transfer 12/30/18 22:19 cxr-worsening left pleural effusion and atelectasis; ct scan abd/pelvis- inflammation, stranding in area of cecum and ileocecal valve. ? crohns, cannot r /o appendicitis. Counseled pt/family regarding: lab results, diagnosis, rad results - Departure Departure Disposition: Transfer Clinical Impression: CHF (congestive heart failure), Colitis, Pleural effusion, left, Elevated d- dimer, Elevated troponin, Renal insufficiency Condition: Stable Critical Care Time: Yes Critical Care Time(excluding separately billable procedures): 30-74 minutes Referrals: DIANA RICHARDS [Primary Care Provider] - Instructions: Heart Failure
[2018-12-30] MEDS ORDERED: Zofran 4 MG/2 ML VIAL IV ONE (19:20)
[2018-12-30] MEDS ORDERED: Sodium Chloride 0.9% 1000 ML 1,000 ML ONE (19:27)
[2018-12-30] MEDS ORDERED: Zofran 4 MG/2 ML VIAL ONE (19:27)
[2018-12-30] MEDS ORDERED: Sodium Chloride 0.9% 1000 ML 1,000 ML IV SCH (19:30)
[2018-12-30 19:47] LABS: BASOPHIL % 0.1 % (0.0-0.4); Basophil (Absolute #) 0.01 (0-0.4); Eosinophil % 3.7 % (0.00-5.0); Eosinophil (Absolute #) 0.42 (0-0.5); Granulocyte Absolute (ANC) 9.34 (1.4-6.9); Granulocytes % 82.6 % (36.0-66.0); Hematocrit 31.5 % (35-47); Hemoglobin 9.8 gm/dl (12.0-16.0); Lymphocyte (Absolute #) 0.72 (1.0-4.6); Lymphocytes % 6.4 % (24.0-44.0); Mean Cell Volume 103.6 fl (78-100); Mean Corpuscular Hemoglobin 32.2 pg (26-32); Mean Corpuscular Hgb Concent. 31.1 g/dl (32-36); Mean Platelet Volume 10.4 fl (6-9.5); Monocyte (Absolute #) 0.81 (0.0-1.3); Monocytes % 7.2 % (0.0-12.0); Platelet Count 193 K/mm3 (150-450); Red Blood Count 3.04 M/mm3 (4.1-5.4); Red Cell Distribution Width 12.2 % (11.5-14.0); White Blood Count 11.3 K/mm3 (4.0-10.5)
[2018-12-30 19:51] LABS: Appearance CLOUDY (CLEAR); Bacteria RARE /HPF (NEGATIVE); Bilirubin NEGATIVE (NEGATIVE); Blood MODERATE Ery/ul (0-5); Epithelial Cells RARE /HPF (FEW); Glucose NEGATIVE (NEGATIVE); Hyaline Casts 0-2 /LPF (0-2); Ketones TRACE (NEGATIVE); Leukocyte Esterase NEGATIVE (NEGATIVE); Nitrite NEGATIVE (NEGATIVE); Protein,Urine Dip 30 (Negative); Specific Gravity 1.009 (1.005-1.025); Urobilinogen 2 mg/dL (0-1)
[2018-12-30 19:57] LABS: ANION GAP 13.2 MEQ/L (5-15); BILIRUBIN,TOTAL 0.7 mg/dL (0.2-1.3); Calcium 8.7 mg/dL (8.4-10.2); Creatinine 1 2.5 mg/dL (0.52-1.04); Potassium 4.2 mmol/L (3.5-5.1); Total Protein 6.5 g/dL (6.3-8.2)
[2018-12-30] MEDS ORDERED: MORPHINE SULFATE 4 MG INJ IV ONE (21:16)
[2018-12-30] MEDS ORDERED: MORPHINE SULFATE 4 MG INJ ONE (21:22)
[2018-12-30] MEDS ORDERED: FLAGYL 500 MG IVPB 500 MG/100 ML BAG IV STA (21:30)
[2018-12-30] MEDS ORDERED: FLAGYL 500 MG IVPB 500 MG/100 ML BAG IV ONE (21:34)
[2018-12-30] MEDS ORDERED: Lasix 40 MG/4 ML IV ONE (21:44)
[2018-12-30] MEDS ORDERED: Lasix 40 MG/4 ML ONE (22:11)
[2018-12-30] MEDS ORDERED: TYLENOL 325 MG PO ONE (22:26)
[2018-12-30] MEDS ORDERED: TYLENOL 325 MG ONE (22:28)
[2018-12-30 22:40] VITALS: BP 123/47; PULSE 76; O2SAT 95
--- NOTE | 2018-12-31 09:31 | XRAY ---
Indication: Short of breath. Comparison: December 27, 2018. Portable chest demonstrates increasing large left effusion/atelectasis occupying at least 75% of the hemithorax. Right lung clear. Heart remains enlarged.
--- NOTE | 2018-12-31 09:54 | XRAY ---
Indication: Abdominal pain. Fever. Multiple contiguous axial images obtained through the abdomen and pelvis without contrast as ordered. Comparison: December 17, 2018. Lung bases demonstrates increasing large left effusion with compressive atelectasis. Stable cardiomegaly and right lung calcified granulomas. Images through the abdomen and pelvis again limited due to patient body habitus. Noncontrasted stomach and bowel loops appear nonobstructed. Right lower quadrant now demonstrates 4.7 x 5 cm focus of induration, stranding, and fluid leveling. Difficult to ascertain if finding is inflamed bowel loop, walled off fluid collection/abscess, or a combination. Appendix not clearly seen and therefore appendicitis is not completely excluded. No other free fluid/air. [place] catheter empties the urinary bladder. Spleen remains enlarged today measuring 19 cm. Remaining liver, gallbladder, pancreas, spleen, adrenal glands, kidneys, ureters, bladder, and uterus appear unremarkable for noncontrast exam. Again minimal aortoiliac calcifications without AAA. Lower abdomen wall again demonstrates stable cutaneous/subcutaneous induration. Impression: 1. Again limited exam due to patient body habitus. 2. Abnormal right lower quadrant with now focus of induration, stranding, and fluid leveling as detailed. Rule out inflamed bowel/IBS, abscess, or combination. Appendicitis not completely excluded. 3. Again incidental splenomegaly and cardiomegaly. 4. Increasing large left lung effusion/atelectasis. CT DI 23.68
== END 2018-12-30 23:40 | disposition short-term general hospital (02) ==
LOC: ED 18:47
DX: I50.9 Heart failure, unspecified (principal); K52.9 Noninfective gastroenteritis and colitis, unspecified; J90 Pleural effusion, not elsewhere classified; R79.89 Other specified abnormal findings of blood chemistry
CPT/HCPCS: 36000; 36415; 51702; 71045; 74176; 80053; 81001; 82150; 83605; 83690; 83880; 84484; 85025; 85379; 87086; 93005; 96360; 96365; 96374; 96375; 99285; J1940; J2270; J2405; A9270-GY

== ENCOUNTER 2019-01-31 15:46 | Observation (INO) | payer OTHER ==
[2019-01-31] MEDS ORDERED: D5W/0.45NS W/ 20mEq KCl 1000 ML 1,000 ML IV SCH ×2 (16:00→20:00)
[2019-01-31] MEDS ORDERED: PROVENTIL COMMON CANISTER IH PRN (16:02)
[2019-01-31 16:54] LABS: BASOPHIL % 0.2 % (0.0-0.4); Basophil (Absolute #) 0.02 (0-0.4); Eosinophil % 3.2 % (0.00-5.0); Granulocyte Absolute (ANC) 7.95 (1.4-6.9); Granulocytes % 85.1 % (36.0-66.0); Hematocrit 27.9 % (35-47); Hemoglobin 8.7 gm/dl (12.0-16.0); Lymphocyte (Absolute #) 0.56 (1.0-4.6); Mean Corpuscular Hemoglobin 32.1 pg (26-32); Mean Corpuscular Hgb Concent. 31.2 g/dl (32-36); Mean Platelet Volume 10.3 fl (6-9.5); Monocyte (Absolute #) 0.51 (0.0-1.3); Monocytes % 5.5 % (0.0-12.0); Platelet Count 120 K/mm3 (150-450); Red Blood Count 2.71 M/mm3 (4.1-5.4); Red Cell Distribution Width 12.9 % (11.5-14.0); White Blood Count 9.3 K/mm3 (4.0-10.5)
[2019-01-31 17:10] LABS: ALBUMIN 3.5 g/dL (3.5-5.0); ANION GAP 16.9 MEQ/L (5-15); BILIRUBIN,TOTAL 0.6 mg/dL (0.2-1.3); Calcium 8.8 mg/dL (8.4-10.2); Creatinine 1 3.61 mg/dL (0.52-1.04); Potassium 3.3 mmol/L (3.5-5.1); Total Protein 7.3 g/dL (6.3-8.2)
[2019-01-31] MEDS ORDERED: PROVENTIL 2.5 MG/3 ML NEB IH PRN (17:42)
[2019-01-31] MEDS: FLAGYL 500 MG IVPB 500 MG/100 ML BAG IV SCH (18:25)
[2019-01-31] MEDS ORDERED: Advair Hfa 115/21 Common canister IH SCH (19:00)
[2019-01-31 21:32] LABS: Slide Review 1 YES
[2019-01-31] MEDS ORDERED: NEURONTIN 300 MG PO SCH (22:00)
[2019-01-31] MEDS ORDERED: Lexapro 10 MG PO SCH (22:00)
[2019-01-31] MEDS ORDERED: ECOTRIN 81 MG PO SCH (22:00)
[2019-01-31] MEDS: ELIQUIS 2.5 MG TABLET PO SCH (22:05)
[2019-01-31] MEDS: Zosyn 2.25 GM 2.25 GM in Dextrose 5%/Water IV Soln. 100ML PLUS BAG 100 ML IV SCH (22:05)
[2019-02-01] MEDS: NORVASC 5 MG PO SCH ×2 (03:59→10:27)
[2019-02-01] MEDS: Zosyn 2.25 GM 2.25 GM in Dextrose 5%/Water IV Soln. 100ML PLUS BAG 100 ML IV SCH (05:58)
[2019-02-01] MEDS: FLAGYL 500 MG IVPB 500 MG/100 ML BAG IV SCH ×2 (06:43→06:55)
[2019-02-01 08:17] VITALS: O2SAT 100
[2019-02-01 09:25] LABS: BASOPHIL % 0.1 % (0.0-0.4); Basophil (Absolute #) 0.01 (0-0.4); Eosinophil % 4.4 % (0.00-5.0); Eosinophil (Absolute #) 0.41 (0-0.5); Granulocyte Absolute (ANC) 7.78 (1.4-6.9); Granulocytes % 82.8 % (36.0-66.0); Hemoglobin 8.7 gm/dl (12.0-16.0); Lymphocyte (Absolute #) 0.61 (1.0-4.6); Lymphocytes % 6.5 % (24.0-44.0); Mean Cell Volume 102.6 fl (78-100); Mean Corpuscular Hgb Concent. 31.1 g/dl (32-36); Mean Platelet Volume 10.6 fl (6-9.5); Monocyte (Absolute #) 0.58 (0.0-1.3); Monocytes % 6.2 % (0.0-12.0); Platelet Count 133 K/mm3 (150-450); Red Blood Count 2.73 M/mm3 (4.1-5.4); Red Cell Distribution Width 12.8 % (11.5-14.0); White Blood Count 9.4 K/mm3 (4.0-10.5)
[2019-02-01 09:28] LABS: Mean Corpuscular Hemoglobin 31.8 pg (26-32)
[2019-02-01 09:40] LABS: ALBUMIN 3.4 g/dL (3.5-5.0); ANION GAP 15.5 MEQ/L (5-15); BILIRUBIN,TOTAL 0.7 mg/dL (0.2-1.3); Calcium 8.6 mg/dL (8.4-10.2); Creatinine 1 3.34 mg/dL (0.52-1.04); Potassium 4.3 mmol/L (3.5-5.1); Total Protein 7.3 g/dL (6.3-8.2)
[2019-02-01] MEDS ORDERED: Lexapro 10 MG PO SCH (10:00)
[2019-02-01] MEDS ORDERED: ECOTRIN 81 MG PO SCH (10:00)
[2019-02-01] MEDS ORDERED: Advair Hfa 115/21 Common canister IH SCH (10:00)
[2019-02-01] MEDS ORDERED: PROVENTIL COMMON CANISTER IH SCH (10:00)
[2019-02-01] MEDS ORDERED: Ventolin Hfa MDI IH SCH (10:00)
[2019-02-01] MEDS: ELIQUIS 2.5 MG TABLET PO SCH (10:27)
--- NOTE | 2019-02-01 11:04 | PCM.DCORD ---
- Discharge Discharge Date: 02/01/19 Disposition: Home, Self-Care Prescriptions: Continue Escitalopram Oxalate [Lexapro] 20 mg PO HS Aspirin [Aspir-Low] 81 mg PO HS Albuterol 2.5 mg/3 ml Neb [Proventil 2.5 mg/3 ml Neb] 2.5 mg IH QIDPRN PRN PRN Reason: Shortness Of Breath Gabapentin 300 mg PO HS Furosemide 40 mg [Lasix 40 MG] 40 mg PO BID Apixaban [Eliquis] 5 mg PO BID Amlodipine Besylate 5 mg PO DAILY Fluticasone/Vilanterol [Breo Ellipta 100-25 Mcg INH] 1 mcg IH DAILY Metolazone 2.5 mg [Zaroxolyn 2.5 MG] 1 tab PO 3XW Ergocalciferol (Vitamin D2) [Vitamin D] 1 cap PO WEEKLY Additional Instructions: ASK [employer] ABOUT PROCRIT INJECTIONS Follow up with: DIANA RICHARDS [Primary Care Provider] - 02/08/19 9:30 am
[2019-02-01 11:56] VITALS: BP 125/59; PULSE 71
== END 2019-02-01 13:08 | disposition home or self-care (01) ==
LOC: MED SURG 15:46
PROVIDERS: ADMIT Family Medicine; ATTEND Family Medicine
DX: E86.0 Dehydration (principal); R11.10 Vomiting, unspecified; N18.9 Chronic kidney disease, unspecified; D63.8 Anemia in other chronic diseases classified elsewhere
CPT/HCPCS: 36415; 80053; 85025; 87040; 94640; 94660; 94760; G0378; 94002; J2543; A9270-GY

== ENCOUNTER 2019-03-23 14:27 | Observation (INO) | payer OTHER ==
--- NOTE | 2019-03-23 15:03 | ERPHSYRPT ---
- History of Present Illness Time Seen by Provider: 03/23/19 14:50 Source: patient Exam Limitations: no limitations Patient Subjective Stated Complaint: Pt states "I have been in and out of [facility] for the past couple of weeks, I have low hemaglobin and I have been getting blood transfusions. Today I was more weak than normal, I know my hemaglobin is low." Triage Nursing Assessment: Pt presented through the front doors, alert and oriented X 3, skin pwd. Pt able to stand with assistance, speaking in clear full sentences. Pt has O2 on 4 lpm upon arrival. Physician History: 64 y/o morbidly obese white female, with known intra abd abscess and low hemaglobin, presents with chronic mild abdominal pain but worsening generalized weakness. pt required transfusion of prbcs as recent at just over 2 weeks ago. pt notes no active bleeding. she is soa with exertion and no cp. she has been seen at [facility] in [place], in for this twice in the last month to 2 months. Allergies/Adverse Reactions: adhesive tape Allergy (Verified 01/31/19 16:27) rash, breaks out Home Medications: Escitalopram Oxalate [Lexapro] 20 mg PO HS 06/10/15 [History] Albuterol 2.5 mg/3 ml Neb [Proventil 2.5 mg/3 ml Neb] 2.5 mg IH QIDPRN PRN 05/21/16 [History] Furosemide 40 mg [Lasix 40 MG] 40 mg PO BID 10/26/18 [History] Gabapentin 300 mg PO HS 10/26/18 [History] Amlodipine Besylate 5 mg PO DAILY 12/27/18 [History] Apixaban [Eliquis] 5 mg PO BID 12/27/18 [History] Fluticasone/Vilanterol [Breo Ellipta 100-25 Mcg INH] 1 mcg IH DAILY 12/27/18 [ History] Ergocalciferol (Vitamin D2) [Vitamin D] 1 cap PO WEEKLY 01/31/19 [History] Ferrous Sulfate [Iron] 325 mg PO DAILY 03/23/19 [History] Hx Tetanus, Diphtheria Vaccination/Date Given: Yes Hx Influenza Vaccination/Date Given: Yes Hx Pneumococcal Vaccination/Date Given: Yes Immunizations Up to Date: Yes - Review of Systems Constitutional: Weakness Eyes: No Symptoms Ears, Nose, & Throat: No Symptoms Respiratory: No Symptoms Cardiac: No Symptoms Abdominal/Gastrointestinal: Abdominal Pain (mild right lower quadrant) Genitourinary Symptoms: No Symptoms Musculoskeletal: No Symptoms Skin: No Symptoms Neurological: No Symptoms Psychological: No Symptoms Endocrine: No Symptoms Hematologic/Lymphatic: No Symptoms Immunological/Allergic: No Symptoms All Other Systems: Reviewed and Negative - Past Medical History Pertinent Past Medical History: Yes Neurological History: No Pertinent History ENT History: No Pertinent History Cardiac History: Arrhythmia, Congestive Heart Failure, Coronary Artery Disease, Hypertension Respiratory History: Asthma, Bronchitis, CHF, COPD, Pneumonia, Sleep Apnea Endocrine Medical History: No Pertinent History Musculoskeletal History: Arthritis GI Medical History: Hemorrhoids History: Renal Disease Psycho-Social History: Anxiety, Depression Female Reproductive Disorders: No Pertinent History Other Medical History: aspiration vomited- vent and coma 2010. right leg cellulitis in past. kidney disease no dialysis. o2 4.5 liters at all times. hx of colon perforation that healed w/o surgery - Past Surgical History Past Surgical History: Yes Neuro Surgical History: No Pertinent History Cardiac: No Pertinent History Respiratory: No Pertinent History Gastrointestinal: Hernia Repair Genitourinary: No Pertinent History Musculoskeletal: No Pertinent History Female Surgical History: No Pertinent History Other Surgical History: foot surg - Social History Smoking Status: Current every day smoker How long have you smoked: years Exposure to second hand smoke: Yes Drug Use: none Patient Lives Alone: No - Female History Hx Now: No - Nursing Vital Signs Nursing Vital Signs: Initial Vital Signs Temperature 97.9 F 03/23/19 14:38 Pulse Rate 68 03/23/19 14:38 Respiratory Rate 16 03/23/19 14:38 Blood Pressure 134/61 03/23/19 14:38 O2 Sat by Pulse Oximetry 100 03/23/19 14:38 Pain Scale Pain Intensity 0 - Physical Exam General Appearance: mild distress, alert, anxiety Eye Exam: PERRL/EOMI, eyes nml inspection, pale conjunctivae Ears, Nose, Throat Exam: normal ENT inspection, moist mucous membranes Neck Exam: normal inspection, non-tender, supple, full range of motion Respiratory Exam: normal breath sounds, lungs clear, airway intact, No chest tenderness, No respiratory distress Cardiovascular Exam: regular rate/rhythm, normal heart sounds, normal peripheral pulses Gastrointestinal/Abdomen Exam: soft, tenderness (mild right lower quad), No guarding, No rebound Pelvic Exam: not done Rectal Exam: not done Back Exam: normal inspection, normal range of motion, No CVA tenderness, No vertebral tenderness Extremity Exam: normal inspection, normal range of motion, pelvis stable Neurologic Exam: alert, oriented x 3, cooperative, talk show host II-XII nml as tested, normal mood/affect, nml cerebellar function, nml station & gait Skin Exam: warm, pale Lymphatic Exam: No adenopathy SpO2 Interpretation: normal SpO2: 100 O2 Delivery: Room Air Ordered Tests: Active Orders 24 hr Category Date Time Status IV Insertion STAT Care 03/23/19 15:30 Active ABDOMEN AND PELVIS W/0 CONTRAS [CT] Stat Exams 03/23/19 15:04 Completed AMYLASE Stat Lab 03/23/19 15:20 Completed CBC W DIFF Stat Lab 03/23/19 15:20 Completed CMP Stat Lab 03/23/19 15:20 Completed LIPASE Stat Lab 03/23/19 15:20 Completed Lactic Acid Stat Lab 03/23/19 15:26 Completed UA W/RFX UR CULTURE Stat Lab 03/23/19 15:03 Uncollected Transfer Order Routine Transfer 03/23/19 Ordered Lab/Rad Data: Laboratory Result Diagrams 03/23/19 15:20 03/23/19 15:20 Laboratory Results 03/23/19 03/23/19 03/23/19 Range/Units 15:26 15:20 15:20 WBC (4.0-10.5) K/mm3 RBC (4.1-5.4) M/mm3 Hgb (12.0-16.0) gm/dl Hct (35-47) % MCV (78-100) fl MCH (26-32) pg MCHC (32-36) g/dl RDW (11.5-14.0) % Plt Count (150-450) K/mm3 MPV (6-9.5) fl Gran % (36.0-66.0) % Eos # (Auto) (0-0.5) Absolute Lymphs (auto) (1.0-4.6) Absolute Monos (auto) (0.0-1.3) Lymphocytes % (24.0-44.0) % Monocytes % (0.0-12.0) % Eosinophils % (0.00-5.0) % Basophils % (0.0-0.4) % Absolute Granulocytes (1.4-6.9) Basophils # (0-0.4) Sodium (137-145) mmol/L Potassium (3.5-5.1) mmol/L Chloride (98-107) mmol/L Carbon Dioxide (22-30) mmol/L Anion Gap (5-15) MEQ/L BUN (7-17) mg/dL Creatinine (0.52-1.04) mg/dL Estimated GFR ML/MIN Glucose (74-106) mg/dL Lactic Acid 0.7 (0.4-2.0) Calcium (8.4-10.2) mg/dL Total Bilirubin (0.2-1.3) mg/dL AST (14-36) U/L ALT (0-35) U/L Alkaline Phosphatase (38-126) U/L Serum Total Protein (6.3-8.2) g/dL Albumin (3.5-5.0) g/dL Amylase (30-110) U/L Lipase (23-300) U/L ABO Group O Rh Factor POSITIVE Antibody Screen NEGATIVE (NEGATIVE) Crossmatch COMPATIBLE COMPATIBLE (COMPATIBLE) 03/23/19 03/23/19 Range/Units 15:20 15:20 WBC 3.9 L (4.0-10.5) K/mm3 RBC 2.40 L (4.1-5.4) M/mm3 Hgb 7.4 L (12.0-16.0) gm/dl Hct 23.9 L (35-47) % MCV 99.6 (78-100) fl MCH 30.8 (26-32) pg MCHC 31.0 L (32-36) g/dl RDW 14.0 (11.5-14.0) % Plt Count 132 L (150-450) K/mm3 MPV 9.9 H (6-9.5) fl Gran % 63.0 (36.0-66.0) % Eos # (Auto) 0.37 (0-0.5) Absolute Lymphs (auto) 0.79 L (1.0-4.6) Absolute Monos (auto) 0.25 (0.0-1.3) Lymphocytes % 20.4 L (24.0-44.0) % Monocytes % 6.5 (0.0-12.0) % Eosinophils % 9.6 H (0.00-5.0) % Basophils % 0.5 (0.0-0.4) % Absolute Granulocytes 2.44 (1.4-6.9) Basophils # 0.02 (0-0.4) Sodium 138 (137-145) mmol/L Potassium 3.4 L (3.5-5.1) mmol/L Chloride 95 L (98-107) mmol/L Carbon Dioxide 33 H (22-30) mmol/L Anion Gap 12.6 (5-15) MEQ/L BUN 21 H (7-17) mg/dL Creatinine 2.06 H (0.52-1.04) mg/dL Estimated GFR 25.8 ML/MIN Glucose 67 L (74-106) mg/dL Lactic Acid (0.4-2.0) Calcium 8.6 (8.4-10.2) mg/dL Total Bilirubin 0.50 (0.2-1.3) mg/dL AST 17 (14-36) U/L ALT 6 (0-35) U/L Alkaline Phosphatase 61 (38-126) U/L Serum Total Protein 6.0 L (6.3-8.2) g/dL Albumin 2.6 L (3.5-5.0) g/dL Amylase < 30 L (30-110) U/L Lipase 25 (23-300) U/L ABO Group Rh Factor Antibody Screen (NEGATIVE) Crossmatch (COMPATIBLE) - Progress Progress: unchanged, re-examined Progress Note: 03/23/19 16:51 ct scan abd/pelvis-no abscess mentioned in ct report. right lower quadrant 03/23/19 17:[address] segura. i reviewed pt hx, condition, lab and xray results with her. she accepts pt for observation. transfusion prbcs with lasix in between units Discussed with Dr.: Other (colton) Counseled pt/family regarding: lab results, diagnosis, rad results - Departure Departure Disposition: Observation Clinical Impression: Symptomatic anemia, Abdominal pain Condition: Stable Critical Care Time: Yes Critical Care Time(excluding separately billable procedures): 30-74 minutes Referrals: TIBURCIO WILLIAMSON MD [Primary Care Provider] -
[2019-03-23 15:29] LABS: BASOPHIL % 0.5 % (0.0-0.4); Basophil (Absolute #) 0.02 (0-0.4); Eosinophil % 9.6 % (0.00-5.0); Eosinophil (Absolute #) 0.37 (0-0.5); Granulocyte Absolute (ANC) 2.44 (1.4-6.9); Hematocrit 23.9 % (35-47); Hemoglobin 7.4 gm/dl (12.0-16.0); Lymphocyte (Absolute #) 0.79 (1.0-4.6); Lymphocytes % 20.4 % (24.0-44.0); Mean Cell Volume 99.6 fl (78-100); Mean Corpuscular Hemoglobin 30.8 pg (26-32); Mean Platelet Volume 9.9 fl (6-9.5); Monocytes % 6.5 % (0.0-12.0); Platelet Count 132 K/mm3 (150-450); White Blood Count 3.9 K/mm3 (4.0-10.5)
[2019-03-23 15:41] LABS: ALBUMIN 2.6 g/dL (3.5-5.0); ALKALINE PHOSPHATASE 61 U/L (38-126); AMYLASE < 30 U/L (30-110); ANION GAP 12.6 MEQ/L (5-15); BLOOD UREA NITROGEN 21 mg/dL (7-17); CHLORIDE 95 mmol/L (98-107); Calcium 8.6 mg/dL (8.4-10.2); Carbon Dioxide 33 mmol/L (22-30); Creatinine 1 2.06 mg/dL (0.52-1.04); Glucose 67 mg/dL (74-106); LIPASE 25 U/L (23-300); Potassium 3.4 mmol/L (3.5-5.1); SGOT/AST 17 U/L (14-36); SGPT/ALT 6 U/L (0-35); SODIUM 138 mmol/L (137-145)
[2019-03-23 16:17] LABS: ABO TYPING O; Antibody Screen NEGATIVE (NEGATIVE); RH TYPING POSITIVE
--- NOTE | 2019-03-23 16:43 | XRAY ---
Indication: Abdomen pain. Weakness. Multiple contiguous axial images obtained through the abdomen and pelvis without contrast as ordered. Comparison: December 30, 2018. Lung bases again demonstrates incompletely visualized left effusion with near complete left lower lobe atelectasis, right base fibrosis/scarring and right base calcified granuloma. Heart remains enlarged with slight increasing pericardial effusion. Again images through the abdomen and pelvis are limited again due to patient body habitus. Visualized noncontrasted stomach and bowel loops appear nonobstructed. Right lower quadrant again demonstrates induration and stranding less than before. Appendix identified and appears unremarkable for noncontrast exam. No free fluid/air. Spleen remains enlarged today measuring 17 cm. There remains a few tiny calcified hepatic granulomas. Remaining liver, gallbladder, pancreas, adrenal glands, kidneys, ureters, bladder, and uterus appear unremarkable for noncontrast exam. Stable minimal aortoiliac calcifications without AAA. Osseous structures again demonstrates mild degenerative changes throughout the spine and levorotoscoliosis. Stable large lower abdomen pannus. Impression: 1. Again limited exam due to patient body habitus. 2. Improved right lower quadrant induration/stranding. Normal appearing appendix. 3. Again incidental splenomegaly and evidence for old granulomatous disease. 4. Again incompletely visualized left effusion with left lower lobe atelectasis. 3. Stable cardiomegaly with increasing pericardial effusion. CTDI 23.69
[2019-03-23 17:10] LABS: CROSS MATCH (PRBC) COMPATIBLE (COMPATIBLE)
[2019-03-23] MEDS ORDERED: Zofran 4 MG/2 ML VIAL IV PRN (17:27)
[2019-03-23] MEDS ORDERED: Lasix 40 MG/4 ML IV PRN (17:27)
[2019-03-23] MEDS ORDERED: Sodium Chloride 0.9% 1000 ML 1,000 ML IV SCH (17:27)
[2019-03-23] MEDS ORDERED: TYLENOL 325 MG PO PRN (17:27)
--- NOTE | 2019-03-23 19:18 | PCM.NOTE ---
Date and Time: 03/23/191914 Subjective Assessment: Patient presented to ER with C/O extreme weakness . She is followed by Dr Zelaya and Dr Bryon Waddell for intra abdominal abcess that per patient was treated with IV and oral antibiotics and followed by CT and states "it has improved to the size of a pea",not seen in CTAbd/Pelvis done today in ER. She has had a slow bleed but negative recent EGD and Colonoscopy by Dr Baum at [facility] and has required blood transfusion 2 x at [facility] since December2018. She has a Hx of PE x2 and has been on Eliquis. She was to hold the Eliquis but took a dose yesterday "for fear of a blod clot comiing back". Her Hgb at Dr Zelaya's office last week was "8" and in the ER today down to 7.4. She is scheduled for an appt with Woodworking [employer],Dr Reese, at [facility] tomorrow at 1:[address]. [address] Reese ordered blood work but some of it is not covered by insurance and she could not have all of the tests done. Plan to transfuse 2 units PRBC ,1st unit is transfusing now.If stable in the morning patient will be able to make it to her appt. Dr Tono Waddell visited the patient this evening and does not feel patient should have another scope and that need to proceed with medical etiology work up . Dr Zelaya notified. OBJECTIVE DATA Vital Signs: Vital Signs - 24 hr Temp Pulse Resp BP Pulse Ox 03/23/19 18:40 98.4 F 67 18 121/60 99 03/23/19 18:15 98.3 F 67 18 116/56 99 03/23/19 17:45 98 03/23/19 17:17 100 03/23/19 17:01 98.2 F 68 18 128/50 100 03/23/19 16:01 98.1 F 70 18 99/48 100 03/23/19 15:19 97.8 F 69 16 130/60 99 03/23/19 14:38 97.9 F 68 16 134/61 100 Oxygen-Last 24 hours O2 Percentage 4 Liters = 36% O2 Percentage 4 Liters = 36% O2 Percentage 4 Liters = 36% Pain Assessment - Last Documented Pain Intensity 0 Pain Scale Used 0-10 Pain Scale Intake and Output: Intake & Output 03/21/19 03/22/19 03/23/19 03/24/19 11:59 11:59 11:59 11:59 Weight 109.769 kg Lab Results: Lab Results-Last 24 Hours 03/23/19 03/23/19 03/23/19 Range/Units 15:20 15:20 15:20 WBC 3.9 L (4.0-10.5) K/mm3 RBC 2.40 L (4.1-5.4) M/mm3 Hgb 7.4 L (12.0-16.0) gm/dl Hct 23.9 L (35-47) % MCV 99.6 (78-100) fl MCH 30.8 (26-32) pg MCHC 31.0 L (32-36) g/dl RDW 14.0 (11.5-14.0) % Plt Count 132 L (150-450) K/mm3 MPV 9.9 H (6-9.5) fl Gran % 63.0 (36.0-66.0) % Eos # (Auto) 0.37 (0-0.5) Absolute Lymphs (auto) 0.79 L (1.0-4.6) Absolute Monos (auto) 0.25 (0.0-1.3) Lymphocytes % 20.4 L (24.0-44.0) % Monocytes % 6.5 (0.0-12.0) % Eosinophils % 9.6 H (0.00-5.0) % Basophils % 0.5 (0.0-0.4) % Absolute Granulocytes 2.44 (1.4-6.9) Basophils # 0.02 (0-0.4) Sodium 138 (137-145) mmol/L Potassium 3.4 L (3.5-5.1) mmol/L Chloride 95 L (98-107) mmol/L Carbon Dioxide 33 H (22-30) mmol/L Anion Gap 12.6 (5-15) MEQ/L BUN 21 H (7-17) mg/dL Creatinine 2.06 H (0.52-1.04) mg/dL Estimated GFR 25.8 ML/MIN Glucose 67 L (74-106) mg/dL Lactic Acid (0.4-2.0) Calcium 8.6 (8.4-10.2) mg/dL Total Bilirubin 0.50 (0.2-1.3) mg/dL AST 17 (14-36) U/L ALT 6 (0-35) U/L Alkaline Phosphatase 61 (38-126) U/L Serum Total Protein 6.0 L (6.3-8.2) g/dL Albumin 2.6 L (3.5-5.0) g/dL Amylase < 30 L (30-110) U/L Lipase 25 (23-300) U/L ABO Group O Rh Factor POSITIVE Antibody Screen NEGATIVE (NEGATIVE) Crossmatch COMPATIBLE (COMPATIBLE) 03/23/19 03/23/19 Range/Units 15:20 15:26 WBC (4.0-10.5) K/mm3 RBC (4.1-5.4) M/mm3 Hgb (12.0-16.0) gm/dl Hct (35-47) % MCV (78-100) fl MCH (26-32) pg MCHC (32-36) g/dl RDW (11.5-14.0) % Plt Count (150-450) K/mm3 MPV (6-9.5) fl Gran % (36.0-66.0) % Eos # (Auto) (0-0.5) Absolute Lymphs (auto) (1.0-4.6) Absolute Monos (auto) (0.0-1.3) Lymphocytes % (24.0-44.0) % Monocytes % (0.0-12.0) % Eosinophils % (0.00-5.0) % Basophils % (0.0-0.4) % Absolute Granulocytes (1.4-6.9) Basophils # (0-0.4) Sodium (137-145) mmol/L Potassium (3.5-5.1) mmol/L Chloride (98-107) mmol/L Carbon Dioxide (22-30) mmol/L Anion Gap (5-15) MEQ/L BUN (7-17) mg/dL Creatinine (0.52-1.04) mg/dL Estimated GFR ML/MIN Glucose (74-106) mg/dL Lactic Acid 0.7 (0.4-2.0) Calcium (8.4-10.2) mg/dL Total Bilirubin (0.2-1.3) mg/dL AST (14-36) U/L ALT (0-35) U/L Alkaline Phosphatase (38-126) U/L Serum Total Protein (6.3-8.2) g/dL Albumin (3.5-5.0) g/dL Amylase (30-110) U/L Lipase (23-300) U/L ABO Group Rh Factor Antibody Screen (NEGATIVE) Crossmatch COMPATIBLE (COMPATIBLE) Radiology Exams: Radiology Procedures Category Date Time Status ABDOMEN AND PELVIS W/0 CONTRAS [CT] Stat Exams 03/23/19 15:04 Completed
[2019-03-23] MEDS ORDERED: PHENERGAN 25 MG PO PRN (19:46)
[2019-03-23 21:40] LABS: Appearance CLEAR (CLEAR); Bilirubin NEGATIVE (NEGATIVE); Blood SMALL Ery/ul (0-5); Glucose NEGATIVE (NEGATIVE); Ketones TRACE (NEGATIVE); Leukocyte Esterase NEGATIVE (NEGATIVE); Mucus SLIGHT /HPF (NEGATIVE); Nitrite NEGATIVE (NEGATIVE); Protein,Urine Dip NEGATIVE (Negative); Specific Gravity 1.006 (1.005-1.025); Urobilinogen NEGATIVE mg/dL (0-1)
[2019-03-23] MEDS ORDERED: NEURONTIN 300 MG PO SCH (22:00)
[2019-03-24 02:44] LABS: BASOPHIL % 0.2 % (0.0-0.4); Basophil (Absolute #) 0.01 (0-0.4); Eosinophil % 12.8 % (0.00-5.0); Eosinophil (Absolute #) 0.52 (0-0.5); Granulocyte Absolute (ANC) 2.08 (1.4-6.9); Granulocytes % 51.2 % (36.0-66.0); Hematocrit 27.7 % (35-47); Hemoglobin 8.8 gm/dl (12.0-16.0); Lymphocyte (Absolute #) 1.05 (1.0-4.6); Lymphocytes % 25.9 % (24.0-44.0); Mean Cell Volume 96.9 fl (78-100); Mean Corpuscular Hgb Concent. 31.8 g/dl (32-36); Mean Platelet Volume 9.6 fl (6-9.5); Monocytes % 9.9 % (0.0-12.0); Platelet Count 113 K/mm3 (150-450); Red Blood Count 2.86 M/mm3 (4.1-5.4); Red Cell Distribution Width 15.3 % (11.5-14.0); White Blood Count 4.1 K/mm3 (4.0-10.5)
[2019-03-24 02:46] LABS: Mean Corpuscular Hemoglobin 30.7 pg (26-32)
[2019-03-24 03:00] LABS: ALBUMIN 2.4 g/dL (3.5-5.0); ANION GAP 10.6 MEQ/L (5-15); BILIRUBIN,TOTAL 0.9 mg/dL (0.2-1.3); Calcium 8.4 mg/dL (8.4-10.2); Creatinine 1 1.91 mg/dL (0.52-1.04); Potassium 3.4 mmol/L (3.5-5.1); Total Protein 5.5 g/dL (6.3-8.2)
[2019-03-24] MEDS ORDERED: PATIENT OWN MEDICATION IH SCH (07:00)
[2019-03-24] MEDS ORDERED: PROVENTIL 2.5 MG/3 ML NEB IH PRN (07:07)
[2019-03-24 07:19] VITALS: BP 115/54; O2SAT 99
[2019-03-24 07:28] VITALS: PULSE 65
--- NOTE | 2019-03-24 09:55 | CONS ---
CONSULT DATE/TIME: 03/23/2019 1800 REASON FOR CONSULT: Anemia. HISTORY: This patient is a complicated patient known to our service who was recently admitted to [facility] with intra-abdominal abscess which was treated conservatively with antibiotics. She also had a GI bleed recently requiring blood transfusion. She underwent EGD and colonoscopy with gastroenterology per the patient but they did not find any source of the bleeding. She is on Eliquis for a recent pulmonary embolism with deep venous thrombosis. She did have outpatient labs which showed a worsening anemia with hemoglobin 7 with hemoglobin about 8 one week ago. She does not really notice any blood in the stools. Her stools are a little bit dark. She does take an iron supplement. She complains of severe fatigue and decreased appetite. She is not really having any abdominal pain. She has had some diarrhea. REVIEW OF SYSTEMS: Twelve systems reviewed and negative except for in the history of present illness. PAST MEDICAL HISTORY: Significant for congestive heart failure, chronic kidney disease, pulmonary embolism, deep venous thrombosis, intra-abdominal abscess. MEDICATIONS: Reviewed, see MAR. ALLERGIES: REVIEWED, SEE MAR. FAMILY HISTORY: Noncontributory. LAB DATA AND TESTS: CT scan shows improved right lower quadrant stranding. Laboratory studies showed hemoglobin 7. Creatinine 2.06, lactic acid 0.7, albumin 2.6. PHYSICAL EXAMINATION: GENERAL: No acute distress. HEENT: Sclera nonicteric. Extraocular movements intact. NECK: Supple. No JVD. CHEST: Nonlabored breathing. ABDOMEN: Soft, nondistended, nontender, obese. NEURO: Awake, alert and oriented. PSYCH: Appropriate mood and affect. ASSESSMENT: ANEMIA WITH RECENT INTRA-ABDOMINAL INFECTION: Her intra-abdominal infection appears to be resolved. She does already have recent EGD and colonoscopy. There is no sign of any substantial GI bleed at this time. She may have some degree anemia from very slow GI bleed with her Eliquis causing this chronic anemia or the anemia could be more medical in nature. I do not think repeating EGD or colonoscopy this soon from a negative exam would be of use right now. If further GI bleeding is suspected, the patient may benefit from capsule endoscopy. The patient is otherwise stable and there is no need for any urgent surgical intervention. I will follow.
[2019-03-24] MEDS ORDERED: FLUTICASONE IH SCH (10:00)
[2019-03-24] MEDS ORDERED: NON-FORMULARY ITEM (Escitalopram Oxalate [Lexapro] 20 MG) PO SCH (10:00)
[2019-03-24] MEDS ORDERED: Lexapro 10 MG PO SCH (10:00)
[2019-03-24] MEDS ORDERED: VILANTEROL IH SCH (10:00)
[2019-03-24] MEDS ORDERED: FEOSOL 325 MG PO SCH (10:00)
[2019-03-24] MEDS ORDERED: Protonix 40MG Tablet PO SCH (10:00)
[2019-03-24] MEDS ORDERED: NORVASC 5 MG PO SCH (10:00)
[2019-03-24] MEDS ORDERED: Lasix 40 MG PO SCH (10:00)
[2019-03-24] MEDS ORDERED: NEURONTIN 300 MG PO SCH (10:00)
--- NOTE | 2019-03-24 11:56 | SSS ---
DISCHARGE DIAGNOSES: 1) BLOOD LOSS ANEMIA. 2) HISTORY OF PULMONARY EMBOLISM. 3) HYPOXIA. 4) CONGESTIVE HEART FAILURE. 5) CHRONIC OBSTRUCTIVE PULMONARY DISEASE. 6) MORBID OBESITY. HOSPITAL COURSE: The patient is a 64 year-old white female who presented to the emergency room with complaints of weakness. She reports that she knows her hemoglobin is low. She has been having problems with anemia. She is on Eliquis for history of pulmonary embolism. However, she continues to have some issues with slow leaking of GI blood loss. She has had both upper and lower endoscopies performed previously. It is not a fast bleed but the patient has chosen to continue to take Eliquis due to her history of deep venous thrombosis and pulmonary embolism. The patient has an appointment to see her cherry sorter later on 03/24/2019. She is feeling better after a transfusion. Hemoglobin of 8.8. We feel it is prudent at this time to allow her to discharge to follow up with her hematology appointment later today. HOME MEDICATIONS: Lexapro 20 mg a day, Albuterol PRN, Furosemide 40 mg b.i.d., gabapentin 300 mg at night, amlodipine 5 mg a day, Eliquis 5 mg b.i.d., Breo Ellipta, vitamin D and iron. ALLERGIES: ADHESIVE TAPE. PHYSICAL EXAMINATION: Reveals a morbidly obese white female currently in no distress. VITAL SIGNS: On admission showed temperature 97.9F, pulse 68, respiratory rate 16 and blood pressure 134/61. O2 saturation 100% on supplemental oxygen. HEENT: Normocephalic, atraumatic. Pupils equal round reactive to light. Extraocular movements intact. Oropharynx is pink and moist. She is wearing oxygen per nasal cannula presently. CHEST: Clear. HEART: Regular rate and rhythm. ABDOMEN: Soft. No palpable masses. EXTREMITIES: Without cyanosis, clubbing or edema. NEUROLOGIC: The patient is alert and oriented x3. LAB DATA AND TESTS: The patient had CT scan again showing normal appearing appendix, incidental splenomegaly, incompletely visualized left effusion with left lower lobe atelectasis, stable cardiomegaly with increasing pericardial effusion. The patient's hemoglobin was noted to be 7.4 prior to transfusion. Urine was clear. Prealbumin was 7.78 which is low. Her sugar was 64, BUN 21, creatinine 1.91. Electrolytes were mildly abnormal. Liver enzymes were normal. Again, the patient is ready for discharge home at this time to follow up with cherry sorter this afternoon. We will see her in my office in a week for follow up and she is to call if she has any further problems in the interim.
[2019-03-24] MEDS ORDERED: Advair Hfa 115/21 Common canister IH SCH (19:00)
[2019-03-28] MEDS ORDERED: VITAMIN D2 PO SCH (10:00)
== END 2019-03-24 09:35 | disposition home or self-care (01) ==
LOC: ED 14:27 → MED SURG 17:24
PROVIDERS: ADMIT Family Medicine; ATTEND Family Medicine
DX: D50.0 Iron deficiency anemia secondary to blood loss (chronic) (principal); J44.9 Chronic obstructive pulmonary disease, unspecified; R09.02 Hypoxemia; I50.9 Heart failure, unspecified; E66.01 Morbid (severe) obesity due to excess calories; Z68.41 Body mass index [BMI] 40.0-44.9, adult; Z86.711 Personal history of pulmonary embolism; Z79.01 Long term (current) use of anticoagulants; Z79.899 Other long term (current) drug therapy
CPT/HCPCS: 36000; 36415; 36430; 74176; 80053; 81001; 82150; 83605; 83690; 84134; 85025; 86850; 86900; 86901; 86922; 93268; 94640; 94760; 99285; G0378; P9016; J1940; J2405; A9270-GY

== ENCOUNTER 2019-05-31 11:30 | Observation (INO) | payer OTHER ==
[2019-05-31] MEDS ORDERED: D5W/0.45NS W/ 20mEq KCl 1000 ML 1,000 ML IV SCH (12:00)
[2019-05-31 12:19] LABS: BASOPHIL % 0.2 % (0.0-0.4); Basophil (Absolute #) 0.01 (0-0.4); Eosinophil % 1.5 % (0.00-5.0); Eosinophil (Absolute #) 0.08 (0-0.5); Granulocyte Absolute (ANC) 4.07 (1.4-6.9); Granulocytes % 77.9 % (36.0-66.0); Hematocrit 23.3 % (35-47); Hemoglobin 7.1 gm/dl (12.0-16.0); Lymphocyte (Absolute #) 0.64 (1.0-4.6); Lymphocytes % 12.2 % (24.0-44.0); Mean Cell Volume 96.7 fl (78-100); Mean Corpuscular Hgb Concent. 30.5 g/dl (32-36); Mean Platelet Volume 9.9 fl (6-9.5); Monocyte (Absolute #) 0.43 (0.0-1.3); Monocytes % 8.2 % (0.0-12.0); Platelet Count 200 K/mm3 (150-450); Red Blood Count 2.41 M/mm3 (4.1-5.4); Red Cell Distribution Width 15.3 % (11.5-14.0); White Blood Count 5.2 K/mm3 (4.0-10.5)
[2019-05-31 12:30] LABS: Mean Corpuscular Hemoglobin 29.4 pg (26-32)
[2019-05-31 13:07] LABS: ALBUMIN 2.7 g/dL (3.5-5.0); BILIRUBIN,TOTAL 0.6 mg/dL (0.2-1.3); Calcium 8.7 mg/dL (8.4-10.2); Creatinine 1 2.23 mg/dL (0.52-1.04); Potassium 4.2 mmol/L (3.5-5.1); Total Protein 6.5 g/dL (6.3-8.2)
[2019-05-31 13:09] LABS: Iron 25 ug/dL (37-170); Iron Saturation 20 % (20-39); TIBC 128 ug/dL (265-462)
[2019-05-31] MEDS ORDERED: PHARMACY DOSING REQUEST MC ONE (14:12)
[2019-05-31] MEDS ORDERED: Venofer 100 MG/5 ML*** 200 MG in Sodium Chloride 0.9% 100 ML IVPB 100 ML IV SCH (14:30)
[2019-05-31] MEDS ORDERED: PROVENTIL 2.5 MG/3 ML NEB IH PRN (14:41)
[2019-05-31] MEDS: Sodium Chloride 0.9% 1000 ML 1,000 ML IV SCH ×2 (14:42→23:19)
[2019-05-31] MEDS ORDERED: Phenergan 25 MG INJ IV PRN (14:56)
[2019-05-31 15:35] LABS: ABO TYPING O; Antibody Screen NEGATIVE (NEGATIVE); RH TYPING POSITIVE
[2019-05-31 15:37] LABS: CROSS MATCH (PRBC) COMPATIBLE (COMPATIBLE)
[2019-05-31] MEDS: Pepcid 20 MG VIAL IV SCH (16:26)
[2019-05-31] MEDS: Lexapro 10 MG PO SCH (16:27)
[2019-05-31] MEDS ORDERED: Advair Hfa 115/21 Common canister IH SCH (19:00)
[2019-05-31] MEDS ORDERED: NEURONTIN 300 MG PO SCH (22:00)
[2019-06-01 00:25] LABS: Hematocrit 26.9 % (35-47); Hemoglobin 8.7 gm/dl (12.0-16.0)
[2019-06-01 02:13] LABS: RETICULOCYTE COUNT 1.05 % (0.58-2.38)
[2019-06-01 06:09] LABS: Hematocrit 25.9 % (35-47); Hemoglobin 8.2 gm/dl (12.0-16.0); Mean Cell Volume 91.5 fl (78-100); Mean Corpuscular Hgb Concent. 31.7 g/dl (32-36); Mean Platelet Volume 9.3 fl (6-9.5); Platelet Count 151 K/mm3 (150-450); Red Blood Count 2.83 M/mm3 (4.1-5.4); Red Cell Distribution Width 16.2 % (11.5-14.0); White Blood Count 4.3 K/mm3 (4.0-10.5)
[2019-06-01 06:14] LABS: Mean Corpuscular Hemoglobin 28.9 pg (26-32)
[2019-06-01 06:18] LABS: ALBUMIN 2.2 g/dL (3.5-5.0); ANION GAP 9.1 MEQ/L (5-15); BILIRUBIN,TOTAL 0.5 mg/dL (0.2-1.3); Calcium 8.2 mg/dL (8.4-10.2); Creatinine 1 1.99 mg/dL (0.52-1.04); Potassium 4.2 mmol/L (3.5-5.1); Total Protein 5.6 g/dL (6.3-8.2)
[2019-06-01] MEDS ORDERED: Advair Hfa 115/21 Common canister IH SCH (07:00)
[2019-06-01] MEDS ORDERED: PHARMACY DOSING REQUEST MC ONE (09:31)
[2019-06-01] MEDS ORDERED: NON-FORMULARY ITEM (Escitalopram Oxalate [Lexapro] 20 MG) PO SCH (10:00)
[2019-06-01] MEDS ORDERED: VITAMIN D2 PO SCH (10:00)
[2019-06-01] MEDS ORDERED: NON-FORMULARY ITEM (Famotidine [Pepcid] 40 MG) PO SCH (10:00)
[2019-06-01] MEDS ORDERED: Klor Con 10 MEQ PO SCH (10:00)
[2019-06-01] MEDS ORDERED: VILANTEROL IH SCH (10:00)
[2019-06-01] MEDS ORDERED: FLUTICASONE IH SCH (10:00)
[2019-06-01] MEDS ORDERED: FEOSOL 325 MG PO SCH (10:00)
[2019-06-01] MEDS: Pepcid 20 MG VIAL IV SCH (10:05)
[2019-06-01] MEDS: Lexapro 10 MG PO SCH (10:05)
--- NOTE | 2019-06-01 10:28 | SSS ---
DISCHARGE DIAGNOSES: 1) IRON DEFICIENCY ANEMIA. 2) CHRONIC RENAL INSUFFICIENCY. 3) DIABETES MELLITUS TYPE 2. 4) VOMITING AND DIARRHEA. HISTORY: The patient is a 64 year-old white female with chronic medical problems, multiple comorbidities and diabetes mellitus type 2. She recently had problems with nausea, vomiting and diarrhea which she presented to the office for. She looked quite disheveled and was offered to go to the hospital for IV infusion. The patient received IV fluids. On her evaluation was found to have a hemoglobin less than 8. She was brought into the hospital for observation stay and she will be given 2 units of packed red blood cells, further evaluation and management. PAST MEDICAL/SURGICAL HISTORY: Again significant for diabetes mellitus type 2, anemia. She had been in the hospital at [facility] a few months ago with an abscess on the colon which was treated with IV antibiotics and it eventually shrank to the point she was able to return home without surgery. The patient also has past medical history of depression and gastroesophageal reflux disease. HOME MEDICATIONS: Albuterol PRN, vitamin D, Lexapro 20 mg a day, famotidine 40 mg a day, iron 325 mg a day, Breo Ellipta inhaler, Lasix 40 mg b.i.d., gabapentin 300 mg at night, pantoprazole 40 mg a day, potassium 10 mEq a day, Phenergan on an as needed basis. ALLERGIES: ADHESIVE TAPE. PHYSICAL EXAMINATION: Revealed an obese, white female who again was quite disheveled in her appearance and appeared ill. Her vital signs on admission showed temperature 97F, pulse 71, respiratory rate 16 and blood pressure 130/57. O2 saturation 100%. HEENT: Normocephalic, atraumatic. Pupils equal round reactive to light. Extraocular movements intact. Oropharynx is pink and moist. NECK: Supple without lymphadenopathy, thyromegaly or JVD. CHEST: Clear to auscultation. HEART: Regular rate and rhythm. ABDOMEN: Revealed a palpable mass on the abdominal wall on the right side which is tender otherwise the abdomen was soft. No guarding or rebound. EXTREMITIES: Without cyanosis, clubbing or edema. NEUROLOGIC: The patient is alert and oriented x3 with no focal deficits noted. LAB DATA AND TESTS: Her initial laboratory studies showed her to be hypoglycemic with a glucose that was less than 50. Her creatinine was at 2.23, BUN 43. Electrolytes were otherwise normal. Total bilirubin less than 2.7. Her hemoglobin was 7.1. HOSPITAL COURSE: The patient had been admitted to the hospital for IV fluids. She received a liter of D5 half normal, 20 mEq of potassium. She has also been given 2 units of packed red blood cells to bring her up to 8.7. We will be giving her 2 more units of blood. She is receiving iron infusions and will receive Procrit shot as well. After the second 2 units of blood, the patient was discharged home to follow up in my office next week. She will continue her IV infusions of iron every two days for a total of six doses.
[2019-06-01] MEDS ORDERED: EPOETIN ALFA 20000 UNIT/ML SQ SCH (11:00)
[2019-06-01 11:24] LABS: CROSS MATCH (PRBC) COMPATIBLE (COMPATIBLE)
--- NOTE | 2019-06-01 11:40 | XRAY ---
Indication: Right upper quadrant pain and palpable mass on clinical exam. Multiple contiguous axial images obtained through the abdomen and pelvis without contrast as ordered. Cutaneous marker placed over the region of interest. Comparison: March 23, 2019. Lung bases again demonstrates incompletely visualized left effusion/atelectasis, right base fibrosis/scarring, and right lower lobe calcified granuloma. Heart remains enlarged again with moderate pericardial effusion. Study again limited due to patient's body habitus and large lower abdomen pannus. Lower abdominal wall again demonstrates cutaneous/subcutaneous induration suggesting inflammation. Cutaneous BB is seen right mid to lower abdomen, approximately site of previous right lower quadrant intra-abdominal induration and stranding. New underlying abdominal musculature induration/inflammation at least 5.2 x 10.6 x 8.3 cm in greatest AP, transverse, and CC projections respectively with air bubbles and tiny fluid leveling worrisome for micro-abscesses. Noncontrasted stomach and bowel loops appear nonobstructed. No free fluid/air. Stable 16.6 cm splenomegaly and tiny calcified hepatic granulomas. Remaining liver, gallbladder, pancreas, spleen, adrenal glands, kidneys, ureters, bladder, and uterus appear unremarkable for noncontrast exam. There remains minimal aortoiliac calcifications without AAA. Osseous structures again demonstrates degenerative changes throughout the thoracolumbar spine and scoliosis. Impression: 1. Again limited exam due to body habitus. 2. New right lower quadrant abdominal musculature induration/inflammation as detailed with air bubbles and tiny fluid leveling worrisome for micro-abscesses. No drainable fluid collection. 3. Stable incompletely visualized left effusion with left lower lobe atelectasis. 4. Stable cardiomegaly with pericardial effusion. 5. Again incidental splenomegaly and evidence for old granulomatous disease. CT DI 23.69
[2019-06-01 16:15] VITALS: BP 145/65; PULSE 71; O2SAT 96
== END 2019-06-01 17:05 | disposition home or self-care (01) ==
LOC: CIS 11:30 → MED SURG 13:35 → EDSTATUS 13:40
PROVIDERS: ADMIT Family Medicine; ATTEND Family Medicine
DX: D50.9 Iron deficiency anemia, unspecified (principal); N18.9 Chronic kidney disease, unspecified; E86.0 Dehydration; E11.9 Type 2 diabetes mellitus without complications; R19.7 Diarrhea, unspecified; R11.2 Nausea with vomiting, unspecified; Z79.899 Other long term (current) drug therapy; Z86.711 Personal history of pulmonary embolism
CPT/HCPCS: 36415; 36430; 74176; 80053; 82668; 83540; 83550; 85014; 85018; 85025; 85027; 85045; 86850; 86900; 86901; 86922; 94640; 94760; 96360; 96361; 99211; G0378; J0885; J1756; P9016; A9270-GY

== ENCOUNTER 2019-06-09 10:29 | Inpatient (IN) | payer OTHER ==
[2019-06-09 11:23] LABS: Hematocrit 36.1 % (35-47); Hemoglobin 11.4 gm/dl (12.0-16.0); Mean Cell Volume 92.6 fl (78-100); Mean Corpuscular Hemoglobin 29.2 pg (26-32); Mean Corpuscular Hgb Concent. 31.6 g/dl (32-36); Platelet Count 182 K/mm3 (150-450); Red Cell Distribution Width 16.1 % (11.5-14.0); White Blood Count 8.4 K/mm3 (4.0-10.5)
[2019-06-09 11:29] LABS: ALBUMIN 2.7 g/dL (3.5-5.0); ANION GAP 13.2 MEQ/L (5-15); BILIRUBIN,TOTAL 0.6 mg/dL (0.2-1.3); Calcium 8.7 mg/dL (8.4-10.2); Creatinine 1 2.03 mg/dL (0.52-1.04); Potassium 4.5 mmol/L (3.5-5.1); Total Protein 6.6 g/dL (6.3-8.2)
[2019-06-09] MEDS: SODIUM CHLORIDE 0.45% W/ 20 mEq KCL 1,000 ML IV SCH ×3 (11:35→21:21)
[2019-06-09] MEDS ORDERED: PROVENTIL COMMON CANISTER IH PRN (11:59)
[2019-06-09] MEDS ORDERED: PHENERGAN 25 MG PO PRN (14:42)
[2019-06-09] MEDS ORDERED: PROVENTIL 2.5 MG/3 ML NEB IH PRN (14:42)
[2019-06-09] MEDS ORDERED: Advair Hfa 115/21 Common canister IH SCH (19:00)
[2019-06-09 21:09] LABS: Appearance SLIGHTLY CLOUDY (CLEAR); Bacteria RARE /HPF (NEGATIVE); Bilirubin NEGATIVE (NEGATIVE); Blood SMALL Ery/ul (0-5); Epithelial Cells RARE /HPF (FEW); Glucose NEGATIVE (NEGATIVE); Ketones TRACE (NEGATIVE); Leukocyte Esterase TRACE (NEGATIVE); Mucus SLIGHT /HPF (NEGATIVE); Nitrite NEGATIVE (NEGATIVE); Protein,Urine Dip NEGATIVE (Negative); Specific Gravity 1.011 (1.005-1.025); Urobilinogen NEGATIVE mg/dL (0-1)
[2019-06-09] MEDS ORDERED: TYLENOL 325 MG PO PRN (21:19)
[2019-06-09] MEDS ORDERED: NORCO 5/325 MG PO PRN (21:19)
[2019-06-09] MEDS: NEURONTIN 300 MG PO SCH (21:20)
[2019-06-09] MEDS: TORAdol 30 mg Injection IV PRN (21:28)
[2019-06-09] MEDS: Zofran 4 MG/2 ML VIAL IV PRN (21:39)
[2019-06-10] MEDS: SODIUM CHLORIDE 0.45% W/ 20 mEq KCL 1,000 ML IV SCH ×2 (03:03→13:06)
[2019-06-10] MEDS ORDERED: PHARMACY DOSING REQUIRED: VANCOMYCIN IV ONE (07:49)
[2019-06-10] MEDS ORDERED: PHARMACY DOSING REQUEST MC ONE (07:50)
[2019-06-10] MEDS ORDERED: Zosyn 2.25 GM 2.25 GM in Dextrose 5%/Water IV Soln. 100ML PLUS BAG 100 ML IV SCH (08:00)
[2019-06-10] MEDS: PATIENT OWN MEDICATION IH SCH (08:30)
--- NOTE | 2019-06-10 09:07 | HP ---
CHIEF COMPLAINT: Abdominal pain, weakness, nausea and vomiting. HISTORY OF PRESENT ILLNESS: The patient is a 64 year-old white female who presented to my office with complaints of belly pain. She had been having problems with inability to eat, keep anything down with her vomiting fluids. The patient had been fairly recently in [facility] for perforated bowel which was treated just medically. The patient now appears to be developing abscess over the right upper part of the abdomen. She started deteriorating over the past couple of weeks. She is now felt the need to be admitted to the hospital for more definitive management. The patient has seen Dr. Waddell in consultation who felt that she would need surgery but had set this up for three weeks [address]. The patient is not tolerating this at this time so she has been admitted to the hospital. PAST MEDICAL/SURGICAL HISTORY: Otherwise significant for diabetes mellitus type 2. She has depression, gastroesophageal reflux disease and chronic obstructive pulmonary disease. HOME MEDICATIONS: Advair, Promethazine for nausea, potassium 10 mEq a day, Protonix 40 mg a day, Zofran PRN for nausea, Neurontin 300 mg t.i.d. PRN for neuropathy pain, Pepcid 20 mg a day, Lexapro 20 mg a day, Albuterol PRN, Suring 5/325 mg for pain PRN. ALLERGIES: ADHESIVE TAPE. PHYSICAL EXAMINATION: Revealed an obese, white female who appears disheveled and in a moderate amount of discomfort. Her vital signs initially on arrival to the hospital showed temperature 98.3F, pulse 72, respiratory rate 20 and blood pressure 122/57. O2 saturation 99%. HEENT: Normocephalic, atraumatic. Pupils equal round reactive to light. Oropharynx is dry. NECK: Supple without lymphadenopathy, thyromegaly or JVD. CHEST: Clear to auscultation. HEART: Regular rate and rhythm. ABDOMEN: Exquisitely tender over the right upper quadrant over the area what appears to be a developing abscess. EXTREMITIES: With mild edema. NEUROLOGIC: She is alert and oriented x3 with no focal deficits noted. LAB DATA AND TESTS: UA was essentially normal with specific gravity 1.011. Prealbumin less than 3. White blood cell count 8,400, hemoglobin 11.4, PLT count 182,000. CMP showed a glucose of 64, BUN 20, albumin 40, creatinine 2.03. Electrolytes were fairly normal. Liver enzymes were normal as well. She had previous CT scan showing the new right lower quadrant abdominal musculature induration formation detailed with air bubbles and tiny fluid leveling worrisome for microabscess but no drainable fluid collection at that time. The patient will have surgical consultation. There may be consideration of percutaneous drainage if this develops into a full abscess. We will recheck a CT scan. Again the patient a perforated viscus appears to be developing fistulous tracks and therefore has been scheduled for surgery by Dr. Waddell with the date to be determined at this time.
--- NOTE | 2019-06-10 09:23 | XRAY ---
Indication: Reevaluate abscess. Multiple contiguous axial images obtained through the abdomen and pelvis without contrast as ordered. Comparison: June 01, 2019. Lung bases again demonstrates incompletely visualized left effusion and left lower lobe atelectasis with new right basilar dependent atelectasis/tiny effusion. Stable right lower lobe calcified granuloma. Heart remains enlarged again with moderate pericardial effusion. Study again limited due to patient's body habitus and large lower abdomen pannus. Previous right lower quadrant abdominal wall abscess is reidentified slightly larger with increasing intraluminal air bubbles and worsening surrounding soft tissue induration. Noncontrasted stomach and bowel loops remain nonobstructed. Spleen remains enlarged today measuring 17.8 cm, previously 16.6 cm. Stable tiny calcified hepatic granulomas. Remaining liver, gallbladder, pancreas, spleen, adrenal glands, kidneys, ureters, bladder, and uterus appear unremarkable for noncontrast exam. Stable minimal aortoiliac calcifications without AAA. Impression: 1. Again limited exam due to body habitus. 2. Slight worsening right lower quadrant abdominal wall abscess which is amenable to percutaneous drainage. 3. Again splenomegaly. 4. Grossly stable incompletely visualized left lung base effusion and left lower lobe atelectasis. New right lung base dependent atelectasis and tiny effusion. 5. Stable cardiomegaly with pericardial effusion. CT DI 27.92
[2019-06-10] MEDS: TORAdol 30 mg Injection IV PRN (09:28)
[2019-06-10] MEDS ORDERED: NON-FORMULARY ITEM (Famotidine [Pepcid] 40 MG) PO SCH (10:00)
[2019-06-10] MEDS ORDERED: FLUTICASONE IH SCH (10:00)
[2019-06-10] MEDS ORDERED: NON-FORMULARY ITEM (Escitalopram Oxalate [Lexapro] 20 MG) PO SCH (10:00)
[2019-06-10] MEDS ORDERED: VILANTEROL IH SCH (10:00)
[2019-06-10] MEDS ORDERED: XYLOCAINE 1% HCL 20 ML MDV IJ ONE (10:30)
--- NOTE | 2019-06-10 10:40 | CONS ---
CONSULT DATE: 06/09/2019 REASON FOR CONSULT: Abdominal wall abscess. HISTORY: The patient was seen in the office two days ago. She had multiple CT scans that are suggestive of abdominal wall abscess. I assume there is retained mesh here in the abscess. She was placed on the surgery schedule for three to four weeks for abdominal exploration. At this time it is a little more warm and tender. I think IR (interventional radiology) drainage would be appropriate. CT scan shows it a little bigger. IMPRESSION: Abdominal wall abscess. PLAN: IR drainage.
--- NOTE | 2019-06-10 12:45 | XRAY ---
Indication: Ultrasound guidance for PICC line placement. Initial sonographic imaging of the right upper extremity was performed for localization of patent veins. A patent basilic vein identified above the elbow. Ultrasound guidance was then used for PICC line insertion. Full PICC line insertion is reported separately.
--- NOTE | 2019-06-10 12:47 | XRAY ---
Indication: Poor IV access. IV nutrition. Informed consent obtained. Patient was placed on the fluoroscopic table in a supine position. Initial sonographic imaging of the right upper extremity was performed for localization of patent veins. The right upper extremity was then prepped and draped in sterile fashion. Tourniquet applied. 1% lidocaine plain used for local anesthesia. Using ultrasound guidance and a micropuncture needle, a basilic vein above the elbow was successfully percutaneously cannulized. A floppy tip 0.018 guidewire inserted. Tourniquet released. Needle was exchanged for a 5 [place]an dilator peel-away sheath catheter. Ultimately a 5 [place] double-lumen PICC line was inserted over a longer 0.018 guidewire with the tip positioned in the distal SVC using fluoroscopic guidance. Guidewire removed. Both ports flushed with heparinized saline. Catheter was secured. Postoperative instructions and orders given. Patient discharged in good condition. Impression: Technically successful right upper extremity PICC line placement using ultrasound and fluoroscopic guidance. No immediate complications. Approximately 1 cc blood loss. Approximately 0.3 minute of fluoroscopy used. Catheter length is 38.5 cm.
[2019-06-10] MEDS: Zosyn 2.25 GM 2.25 GM in Dextrose 5%/Water IV Soln. 100ML PLUS BAG 100 ML IV SCH ×2 (13:12→22:47)
[2019-06-10] MEDS: Klor Con 10 MEQ PO SCH (13:15)
[2019-06-10] MEDS: Pepcid 20 MG PO SCH (13:15)
[2019-06-10] MEDS: Protonix 40MG Tablet PO SCH (13:15)
[2019-06-10] MEDS: Lexapro 10 MG PO SCH (13:15)
--- NOTE | 2019-06-10 13:32 | XRAY ---
Indication: Right lower quadrant abdominal wall abscess. Informed consent obtained. Patient placed on the CT table in a supine position. CT scan was performed through the abdomen for localization using cutaneous BBs. The abdominal wall was then prepped and draped in sterile fashion. 1% lidocaine plain used for local anesthesia. Tiny skin incision made. A 18-gauge percutaneous needle was then inserted with the tip advanced into the abdominal wall abscess using CT guidance. A thin floppy-tipped guidewire was then inserted. The track was then dilated up to 8 Kittitian. Ultimately a 8.5 Kittitian pigtail drainage catheter was inserted over the guidewire. The guidewire was removed and the pigtail was formed and locked. Repeat CT imaging demonstrated good catheter tip placement. Brownish tinged foul-smelling fluid was draining. Ultimately the catheter was secured using a Aleyda disc and attached to a YUNIOR drainage device. Patient was discharged to her room in good condition. Impression: Technically successful CT-guided insertion of a percutaneous drainage catheter for a right lower quadrant abdomen wall abscess. No immediate complications. CT DI 34.76
[2019-06-10 15:28] LABS: BASOPHIL % 0.1 % (0.0-0.4); Basophil (Absolute #) 0.01 (0-0.4); Eosinophil % 1.7 % (0.00-5.0); Eosinophil (Absolute #) 0.17 (0-0.5); Granulocyte Absolute (ANC) 8.12 (1.4-6.9); Granulocytes % 82.3 % (36.0-66.0); Hematocrit 35.7 % (35-47); Hemoglobin 10.9 gm/dl (12.0-16.0); Lymphocyte (Absolute #) 0.93 (1.0-4.6); Lymphocytes % 9.4 % (24.0-44.0); Mean Cell Volume 95.7 fl (78-100); Mean Corpuscular Hemoglobin 29.2 pg (26-32); Mean Corpuscular Hgb Concent. 30.5 g/dl (32-36); Mean Platelet Volume 10.2 fl (6-9.5); Monocyte (Absolute #) 0.64 (0.0-1.3); Monocytes % 6.5 % (0.0-12.0); Platelet Count 180 K/mm3 (150-450); Red Blood Count 3.73 M/mm3 (4.1-5.4); Red Cell Distribution Width 16.6 % (11.5-14.0); White Blood Count 9.9 K/mm3 (4.0-10.5)
[2019-06-10] MEDS: INTRALIPID 20% 250 ML 250 ML, TPN Electrolytes 40 ML, Multitrace-4 Conc Vial 1 ML*** 1 ... IV SCH ×5 (16:28)
[2019-06-10] MEDS: VANCOCIN 1 GM VIAL*** 0.75 GM in Sodium Chloride 0.9% 250 ML 250 ML IV SCH (16:29)
[2019-06-10] MEDS: NEURONTIN 300 MG PO SCH (22:49)
[2019-06-11] MEDS: SODIUM CHLORIDE 0.45% W/ 20 mEq KCL 1,000 ML IV SCH (01:21)
[2019-06-11] MEDS: Zosyn 2.25 GM 2.25 GM in Dextrose 5%/Water IV Soln. 100ML PLUS BAG 100 ML IV SCH ×3 (05:45→22:04)
[2019-06-11 06:24] LABS: Hematocrit 27.8 % (35-47); Hemoglobin 8.6 gm/dl (12.0-16.0); Mean Cell Volume 94.9 fl (78-100); Mean Corpuscular Hgb Concent. 30.9 g/dl (32-36); Mean Platelet Volume 9.9 fl (6-9.5); Platelet Count 138 K/mm3 (150-450); Red Blood Count 2.93 M/mm3 (4.1-5.4); Red Cell Distribution Width 16.2 % (11.5-14.0)
[2019-06-11 06:30] LABS: Mean Corpuscular Hemoglobin 29.3 pg (26-32)
[2019-06-11 06:45] LABS: ALBUMIN 2.1 g/dL (3.5-5.0); ANION GAP 8.6 MEQ/L (5-15); Calcium 7.9 mg/dL (8.4-10.2); Creatinine 1 1.99 mg/dL (0.52-1.04); MAGNESIUM 2.1 mg/dL (1.6-2.3); Potassium 5.6 mmol/L (3.5-5.1); Total Protein 5.4 g/dL (6.3-8.2)
[2019-06-11 06:47] LABS: Granulocytes % 78.9 % (36.0-66.0); Lymphocytes % 11.1 % (24.0-44.0); Monocytes % 7.5 % (0.0-12.0)
[2019-06-11 06:48] LABS: BASOPHIL % 0.1 % (0.0-0.4); Basophil (Absolute #) 0.01 (0-0.4); Eosinophil % 2.4 % (0.00-5.0); Eosinophil (Absolute #) 0.17 (0-0.5); Granulocyte Absolute (ANC) 5.68 (1.4-6.9); Monocyte (Absolute #) 0.54 (0.0-1.3)
[2019-06-11] MEDS: PATIENT OWN MEDICATION IH SCH (07:54)
[2019-06-11] MEDS ORDERED: Sodium Chloride 0.9% 1000 ML 1,000 ML IV SCH (09:15)
[2019-06-11] MEDS: Lexapro 10 MG PO SCH (10:06)
[2019-06-11] MEDS: Protonix 40MG Tablet PO SCH (10:07)
[2019-06-11] MEDS: Klor Con 10 MEQ PO SCH (10:07)
[2019-06-11] MEDS: Pepcid 20 MG PO SCH (10:07)
[2019-06-11] MEDS: INTRALIPID 20% 250 ML 250 ML, TPN Electrolytes 40 ML, Multitrace-4 Conc Vial 1 ML*** 1 ... IV SCH ×5 (14:39)
--- NOTE | 2019-06-11 14:59 | PCM.NOTE ---
Date and Time: 06/11/19 1450 Subjective Assessment: 64 yr old female seen and examined this am following admission for abdominal abscess following bowel perforation. Patient reports that she feels slightly better today than yesterday. Patient reports that she has felt tired and short of breath. She reports she is on oxygen at home. She reports hx of CHIP but does not wear a mask due to intentional 100 pound weight loss. Patient reported that she tolerated some chicken boullion No other reported concerns this am. - Review of Systems Constitutional: Other (Tired) Eyes: No Vision Changes, No Double Vision Respiratory: Short Of Breath, No Cough Cardiac: No Chest Pain Abdominal/Gastrointestinal: Abdominal Pain, No Nausea, No Vomiting, No Diarrhea , No Constipation Neurological: Headache Hematologic/Lymphatic: Anemia Objective Exam General Appearance: mild distress, other (Patient appears ill) Neurologic Exam: alert, oriented x 3, cooperative, normal mood/affect Skin Exam: warm, dry Eye Exam: eyes nml inspection Neck Exam: normal inspection Respiratory Exam: normal breath sounds, lungs clear Cardiovascular Exam: regular rate/rhythm, normal heart sounds Gastrointestinal/Abdomen Exam: normal bowel sounds, tenderness (Around incision site. Patient has intact YUNIOR drain that had bloody drainage with yellow sediment) Extremity Exam: No pedal edema Pelvic Exam: deferred Rectal Exam: deferred OBJECTIVE DATA Vital Signs: Vital Signs - 24 hr Temp Pulse Resp BP Pulse Ox 06/11/19 12:00 97.6 F 43 L 20 86/51 98 06/11/19 08:00 97.7 F 75 20 100 06/11/19 07:54 66 18 100 06/11/19 04:00 97.6 F 73 20 106/55 97 06/11/19 00:00 97.8 F 55 L 19 91/54 98 06/10/19 20:33 87 17 99 06/10/19 20:00 97.8 F 71 20 118/59 100 06/10/19 16:55 96 H 18 99 06/10/19 16:00 97.7 F 72 17 116/55 100 Oxygen-Last 24 hours O2 Percentage 4 Liters = 36% O2 Percentage 4 Liters = 36% O2 Percentage 4 Liters = 36% Oxygen Flowrate (L/min)-RT 7 Pain Assessment - Last Documented Pain Intensity 0 Pain Scale Used 0-10 Pain Scale Intake and Output: Intake & Output 06/09/19 06/10/19 06/11/19 06/12/19 11:59 11:59 11:59 11:59 Intake Total 2016 3995 Output Total 400 530 Balance 1617 3465 Weight 97.7 kg 97.7 kg 102.8 kg Lab Results: Accuchecks Date 06/11/1906/11/1906/10/19 Time 09:00 Time 04:00 Time 21:00 Accucheck Value: 161 Accucheck Value: 154 Accucheck Value: 108 Lab Results-Last 24 Hours 06/10/19 06/11/19 06/11/19 Range/Units 14:47 05:53 05:53 WBC 9.9 7.0 (4.0-10.5) K/mm3 RBC 3.73 L 2.93 L (4.1-5.4) M/mm3 Hgb 10.9 L 8.6 L D (12.0-16.0) gm/dl Hct 35.7 27.8 L (35-47) % MCV 95.7 94.9 (78-100) fl MCH 29.2 29.3 (26-32) pg MCHC 30.5 L 30.9 L (32-36) g/dl RDW 16.6 H 16.2 H (11.5-14.0) % Plt Count 180 138 L (150-450) K/mm3 MPV 10.2 H 9.9 H (6-9.5) fl Gran % 82.3 H 78.9 H (36.0-66.0) % Eos # (Auto) 0.17 0.17 (0-0.5) Absolute Lymphs (auto) 0.93 L 0.80 L (1.0-4.6) Absolute Monos (auto) 0.64 0.54 (0.0-1.3) Lymphocytes % 9.4 L 11.1 L (24.0-44.0) % Monocytes % 6.5 7.5 (0.0-12.0) % Eosinophils % 1.7 2.4 (0.00-5.0) % Basophils % 0.1 0.1 (0.0-0.4) % Absolute Granulocytes 8.12 H 5.68 (1.4-6.9) Basophils # 0.01 0.01 (0-0.4) Sodium 129 L D (137-145) mmol/L Potassium 5.6 H D (3.5-5.1) mmol/L Chloride 104 (98-107) mmol/L Carbon Dioxide 22 (22-30) mmol/L Anion Gap 8.6 (5-15) MEQ/L BUN 46 H (7-17) mg/dL Creatinine 1.99 H (0.52-1.04) mg/dL Estimated GFR 26.9 ML/MIN Glucose 145 H (74-106) mg/dL Calcium 7.9 L (8.4-10.2) mg/dL Magnesium 2.1 (1.6-2.3) mg/dL Serum Total Protein 5.4 L (6.3-8.2) g/dL Albumin 2.1 L (3.5-5.0) g/dL Radiology Exams: Radiology Procedures Category Date Time Status ABDOMEN AND PELVIS W/0 CONTRAS [CT] Routine Exams 06/10/19 08:[address] GUIDED ABSCESS DRAINAGE [CT] Routine Exams 06/10/19 19:18 Completed GUIDE FOR VASCULAR ACCESS [US] Routine Exams 06/10/19 10:42 Completed PICC LINE PLACEMENT Routine Exams 06/10/19 11:33 Completed Assessment/Plan (1) Abdominal wall abscess Current Visit: Yes Status: Acute Assessment & Plan: Patient has YUNIOR drain and it has some bloody discharge with yellow sediment approx 25ml. Patient is on IV antibiotics for abscess. Patient is requiring TPN for nutrition right now. Will follow up on surgery's recs. Code(s): L02.211 - CUTANEOUS ABSCESS OF ABDOMINAL WALL (2) Acute abdominal pain Current Visit: Yes Status: Acute Assessment & Plan: Related to recent abdominal perf and abdominal wall abscess. Will continue to monitor and treat abdominal pain. Code(s): R10.9 - UNSPECIFIED ABDOMINAL PAIN (3) Anemia Current Visit: No Status: Acute Assessment & Plan: Patient will possibly require blood products. Her hgb is slightly above 8. Will continue to trend and transfuse if necessary. Code(s): D64.9 - ANEMIA, UNSPECIFIED (4) Hyponatremia Current Visit: Yes Status: Acute Assessment & Plan: Likely due to IV fluids. Discussed with pharmacist and he will make adjustments to patient's TPN to fix Na if still low tomorrow. Code(s): E87.1 - HYPO-OSMOLALITY AND HYPONATREMIA (5) Hyperkalemia Current Visit: Yes Status: Acute Assessment & Plan: Likely related to IV fluids with additional potassium and TPN. Discontinued IV fluids with potassium. Will continue to trend. Code(s): E87.5 - HYPERKALEMIA
[2019-06-11] MEDS: VANCOCIN 1 GM VIAL*** 0.75 GM in Sodium Chloride 0.9% 250 ML 250 ML IV SCH (15:58)
[2019-06-11] MEDS: NEURONTIN 300 MG PO SCH (22:04)
[2019-06-12] MEDS: Zosyn 2.25 GM 2.25 GM in Dextrose 5%/Water IV Soln. 100ML PLUS BAG 100 ML IV SCH ×2 (05:47→14:09)
[2019-06-12 06:27] LABS: Creatinine 1 2.37 mg/dL (0.52-1.04)
[2019-06-12] MEDS: PATIENT OWN MEDICATION IH SCH (07:02)
[2019-06-12 07:58] LABS: ANION GAP 10.3 MEQ/L (5-15); Calcium 8.3 mg/dL (8.4-10.2)
[2019-06-12 08:05] LABS: Creatinine 1 2.37 mg/dL (0.52-1.04)
[2019-06-12 08:08] LABS: Potassium 6.7 mmol/L (3.5-5.1)
[2019-06-12] MEDS ORDERED: Calcium Gluconate 10% 1000 MG IV ONE (08:28)
[2019-06-12] MEDS ORDERED: Lasix 40 MG/4 ML IV ONE (08:29)
[2019-06-12] MEDS ORDERED: Kayexylate 15 GM/60 ML PO ONE ×2 (08:34→14:59)
[2019-06-12] MEDS ORDERED: Calcium Gluconate 10% 1000 MG 1,000 MG in Sodium Chloride 0.9% 50 ML 50 ML IV ONE (08:45)
[2019-06-12 08:50] LABS: BASOPHIL % 0.1 % (0.0-0.4); Basophil (Absolute #) 0.01 (0-0.4); Eosinophil (Absolute #) 0.14 (0-0.5); Granulocyte Absolute (ANC) 5.35 (1.4-6.9); Granulocytes % 78.1 % (36.0-66.0); Hematocrit 27.5 % (35-47); Hemoglobin 8.3 gm/dl (12.0-16.0); Lymphocyte (Absolute #) 0.83 (1.0-4.6); Lymphocytes % 12.1 % (24.0-44.0); Mean Cell Volume 95.8 fl (78-100); Mean Corpuscular Hemoglobin 28.9 pg (26-32); Mean Corpuscular Hgb Concent. 30.2 g/dl (32-36); Mean Platelet Volume 10.4 fl (6-9.5); Monocyte (Absolute #) 0.53 (0.0-1.3); Monocytes % 7.7 % (0.0-12.0); Platelet Count 129 K/mm3 (150-450); Red Blood Count 2.87 M/mm3 (4.1-5.4); Red Cell Distribution Width 16.1 % (11.5-14.0); White Blood Count 6.9 K/mm3 (4.0-10.5)
[2019-06-12] MEDS: Pepcid 20 MG PO SCH (10:05)
[2019-06-12] MEDS: Lexapro 10 MG PO SCH (10:05)
[2019-06-12] MEDS: Protonix 40MG Tablet PO SCH (10:05)
[2019-06-12] MEDS ORDERED: NovoLOG Insulin IV ONE (12:14)
[2019-06-12] MEDS ORDERED: D50W 50 ml Abboject IV ONE ×2 (12:16→12:30)
[2019-06-12] MEDS ORDERED: CALCIUM GLUCONATE IV ONE (12:21)
[2019-06-12] MEDS ORDERED: SODIUM CHLORIDE 0.9% IV ONE (12:21)
[2019-06-12] MEDS ORDERED: PROVENTIL 2.5 MG/3 ML NEB IH ONE ×2 (12:23→12:29)
[2019-06-12] MEDS ORDERED: Dextrose 5%-NS IV Solution 1000 ML 1,000 ML IV SCH (12:30)
[2019-06-12] MEDS ORDERED: Dextrose 5%-NS IV Solution 1000 ML 1,000 ML IV ONE (12:38)
[2019-06-12 12:42] LABS: ANION GAP 9.9 MEQ/L (5-15); Calcium 8.1 mg/dL (8.4-10.2); Creatinine 1 2.41 mg/dL (0.52-1.04)
[2019-06-12] MEDS ORDERED: Dopamine 400 MG/D5W 250ML PREMIX 250 ML IV PRN (13:22)
[2019-06-12] MEDS: Zofran 4 MG/2 ML VIAL IV PRN (14:00)
[2019-06-12 14:48] LABS: ANION GAP 12.2 MEQ/L (5-15); Calcium 8.9 mg/dL (8.4-10.2); Creatinine 1 2.43 mg/dL (0.52-1.04); Potassium 5.9 mmol/L (3.5-5.1)
[2019-06-12] MEDS ORDERED: Phenergan 25 MG INJ IV ONE (15:12)
[2019-06-12 16:04] VITALS: O2SAT 93
--- NOTE | 2019-06-12 16:20 | PCM.NOTE ---
Date and Time: 06/12/19 1615 Subjective Assessment: 64 yr old female seen and examined this am. Patient reports that she feels weak. She reports some mild abdominal pain. She reports occasional shortness of breath. She reports that she continues to have loose stools. She denies any lower extremity edema. No other reported concerns by patient. - Review of Systems Constitutional: Weakness Eyes: No Vision Changes, No Double Vision Respiratory: Cough, Short Of Breath Cardiac: No Chest Pain, No Edema Abdominal/Gastrointestinal: Diarrhea, No Abdominal Pain, No Nausea, No Vomiting , No Constipation Genitourinary Symptoms: No Dysuria, No Urinary Retention Musculoskeletal: No Back Pain Hematologic/Lymphatic: Anemia Objective Exam General Appearance: no apparent distress Neurologic Exam: alert, oriented x 3, normal mood/affect Skin Exam: normal color, warm, dry Eye Exam: eyes nml inspection Ears, Nose, Throat Exam: moist mucous membranes Respiratory Exam: normal breath sounds, lungs clear Cardiovascular Exam: normal heart sounds, No regular rate/rhythm (Irregularly irregular) Gastrointestinal/Abdomen Exam: soft, normal bowel sounds, tenderness (mild tenderness at drain site. YUNIOR with brown sludge drainage) Extremity Exam: normal inspection Back Exam: normal inspection OBJECTIVE DATA Vital Signs: Vital Signs - 24 hr Temp Pulse Resp BP BP Pulse Ox 06/12/19 16:00 57 L 15 112/51 93 L 06/12/19 15:00 49 L 18 105/43 94 L 06/12/19 14:32 51 L 0 L 98/40 06/12/19 14:29 56 L 18 104/38 94 L 06/12/19 14:00 61 18 132/58 94 L 06/12/19 13:38 41 L 21 96/63 100 06/12/19 13:07 57 L 18 85/52 100 06/12/19 12:45 51 L 06/12/19 12:31 36 L 18 95 06/12/19 12:00 97.6 F 71 18 103/55 100 06/12/19 08:00 98.2 F 76 18 121/52 95 06/12/19 07:05 62 16 99 06/12/19 04:00 97.6 F 57 L 16 109/51 98 06/12/19 00:50 54 L 06/12/19 00:00 97.9 F 44 L 17 115/50 100 06/11/19 20:00 97.9 F 46 L 20 99/53 100 06/11/19 18:36 93 L Oxygen-Last 24 hours O2 Percentage 4 Liters = 36% O2 Percentage 4 Liters = 36% O2 Percentage 4 Liters = 36% O2 Percentage 3 Liters = 32% O2 Percentage 4 Liters = 36% O2 Percentage 4 Liters = 36% O2 Percentage 4 Liters = 36% Oxygen Flowrate (L/min)-RT 4 Oxygen Flowrate (L/min)-RT 4 Oxygen Flowrate (L/min)-RT 4 Pain Assessment - Last Documented Pain Intensity 0 Pain Scale Used 0-10 Pain Scale Intake and Output: Intake & Output 06/10/19 06/11/19 06/12/19 06/13/19 11:59 11:59 11:59 11:59 Intake Total 2016 3995 5672 Output Total 400 530 90 40 Balance 1617 3465 5582 -40 Weight 97.7 kg 102.8 kg 102.6 kg 108 kg Lab Results: Accuchecks Date 06/12/19 Date 06/11/19 Time 03:00 Time 21:00 Accucheck Value: 122 Accucheck Value: 133 Lab Results-Last 24 Hours 06/12/19 06/12/19 06/12/19 Range/Units 05:37 05:37 05:37 WBC 6.9 (4.0-10.5) K/mm3 RBC 2.87 L (4.1-5.4) M/mm3 Hgb 8.3 L (12.0-16.0) gm/dl Hct 27.5 L (35-47) % MCV 95.8 (78-100) fl MCH 28.9 (26-32) pg MCHC 30.2 L (32-36) g/dl RDW 16.1 H (11.5-14.0) % Plt Count 129 L (150-450) K/mm3 MPV 10.4 H (6-9.5) fl Gran % 78.1 H (36.0-66.0) % Eos # (Auto) 0.14 (0-0.5) Absolute Lymphs (auto) 0.83 L (1.0-4.6) Absolute Monos (auto) 0.53 (0.0-1.3) Lymphocytes % 12.1 L (24.0-44.0) % Monocytes % 7.7 (0.0-12.0) % Eosinophils % 2.0 (0.00-5.0) % Basophils % 0.1 (0.0-0.4) % Absolute Granulocytes 5.35 (1.4-6.9) Basophils # 0.01 (0-0.4) Sodium 128 L (137-145) mmol/L Potassium 6.7 H* (3.5-5.1) mmol/L Chloride 103 (98-107) mmol/L Carbon Dioxide 22 (22-30) mmol/L Anion Gap 10.3 (5-15) MEQ/L BUN 57 H (7-17) mg/dL Creatinine 2.37 H 2.37 H (0.52-1.04) mg/dL Estimated GFR 22.0 22.0 ML/MIN Glucose 97 (74-106) mg/dL Calcium 8.3 L (8.4-10.2) mg/dL NT-Pro-B Natriuret Pep (0-900) pg/mL 06/12/19 06/12/19 06/12/19 Range/Units 12:30 12:45 14:36 WBC (4.0-10.5) K/mm3 RBC (4.1-5.4) M/mm3 Hgb (12.0-16.0) gm/dl Hct (35-47) % MCV (78-100) fl MCH (26-32) pg MCHC (32-36) g/dl RDW (11.5-14.0) % Plt Count (150-450) K/mm3 MPV (6-9.5) fl Gran % (36.0-66.0) % Eos # (Auto) (0-0.5) Absolute Lymphs (auto) (1.0-4.6) Absolute Monos (auto) (0.0-1.3) Lymphocytes % (24.0-44.0) % Monocytes % (0.0-12.0) % Eosinophils % (0.00-5.0) % Basophils % (0.0-0.4) % Absolute Granulocytes (1.4-6.9) Basophils # (0-0.4) Sodium 125 L 127 L (137-145) mmol/L Potassium 6.0 H 5.9 H (3.5-5.1) mmol/L Chloride 100 102 (98-107) mmol/L Carbon Dioxide 21 L 20 L (22-30) mmol/L Anion Gap 9.9 12.2 (5-15) MEQ/L BUN 58 H 60 H (7-17) mg/dL Creatinine 2.41 H 2.43 H (0.52-1.04) mg/dL Estimated GFR 21.6 21.4 ML/MIN Glucose 229 H 63 L (74-106) mg/dL Calcium 8.1 L 8.9 (8.4-10.2) mg/dL NT-Pro-B Natriuret Pep 12032 H (0-900) pg/mL Radiology Exams: Radiology Procedures Category Date Time Status ABDOMEN AND PELVIS W/0 CONTRAS [CT] Routine Exams 06/13/19 07:00 Ordered ABDOMEN AND PELVIS W/0 CONTRAS [CT] Routine Exams 06/13/19 07:00 Stop Req ABDOMEN AND PELVIS W/0 CONTRAS [CT] Routine Exams 06/13/19 07:[address] GUIDED ABSCESS DRAINAGE [CT] Routine Exams 06/10/19 19:18 Completed Assessment/Plan (1) Abdominal wall abscess Current Visit: Yes Status: Acute Assessment & Plan: YUNIOR drain is still draining brownish sludge however. The drainage appears to have slowed some. Patient was receiving IV antibiotics including vanc but they had to be held temporarily due to RIMA. May need to choose different antibiotic therapy depending on patient's kidney function overnight. Code(s): L02.211 - CUTANEOUS ABSCESS OF ABDOMINAL WALL (2) Acute abdominal pain Current Visit: Yes Status: Acute Assessment & Plan: Patient appears to be stable with her abdominal pain. Can give pain medication if necessary. Abscess drain appears to have helped with some of her pain Code(s): R10.9 - UNSPECIFIED ABDOMINAL PAIN (3) Anemia Current Visit: No Status: Acute Assessment & Plan: Patient's hgb remained stable overnight. Will continue to trend in am. Patient still may require blood products if hgb trends down. Code(s): D64.9 - ANEMIA, UNSPECIFIED (4) Hyponatremia Current Visit: Yes Status: Acute Assessment & Plan: Patient is now receiving normal saline which should slowly correct her Na Code(s): E87.1 - HYPO-OSMOLALITY AND HYPONATREMIA (5) Hyperkalemia Current Visit: Yes Status: Acute Assessment & Plan: During physical exam I was notified of critical K of 6.7. calcium gluconate and kayexlate were ordered. Patient was placed on telemetry. Repeat BMP was ordered. While patient was being monitored on tele she started have a herman arrthymia in the 30s but was asymptomatic. Stat ekg and blood pressure was ordered. Ekg showed afib and herman. Patient was hypotensive 80/50s. Patient's tele strip showed peaked t waves not noted on ekg. Patient was given insulin with dextrose. TPN was stopped. IV fluids of d5 with Normal Saline were started. Patient was started on a albuterol tx. Patient's became hypotensive. She was transfered to ICU for closer monitoring. Patient was given second dose of calcium gluconate. She was started on dopamine. Repeat BMP showed potassium has trended down to 5.9. Patient received second dose of kayexlate. Will continue to monitor BMPs and will hold potassium supplementation at this time. Code(s): E87.5 - HYPERKALEMIA (6) RIMA (acute kidney injury) Current Visit: Yes Status: Acute Assessment & Plan: Patient's cr has trended up. Potentially related to vanc induced nephrotoxicity. Patient also received one dose of lasix to see if that would lower her hyperkalemia and to see if she would increase her urine output. Will continue to monitor creatinine level. Patient may require CRRT for acute kidney injury if Cr doesnt start trending down and she continues to have decreased output. Code(s): N17.9 - ACUTE KIDNEY FAILURE, UNSPECIFIED
[2019-06-12 17:07] LABS: ANION GAP 11.5 MEQ/L (5-15); Calcium 8.6 mg/dL (8.4-10.2); Creatinine 1 2.41 mg/dL (0.52-1.04)
--- NOTE | 2019-06-12 17:09 | PCM.DS ---
Discharge Summary Date of Admission: 06/11/19 11:30 Date of Discharge: 06/12/2019 Admitting Physician: DIANA RICHARDS Consults: Consults on Case 06/09/19 10:42 Consult Surgery ROUTINE 06/09/19 19:18 Notify Anesthesia Provider ROUTINE 06/10/19 14:45 Nutritional Consult 06/12/19 16:45 Consult Nephrology ROUTINE Primary Care Provider: DIANA RICHARDS Allergies Allergies adhesive tape Allergy (Verified 06/06/19 16:49) rash, breaks out Hospital Summary - Hospital Course Hospital Course: HISTORY OF PRESENT ILLNESS: The patient is a 64 year-old white female who presented to outside office with complaints of belly pain. She had been having problems with inability to eat, keep anything down with her vomiting fluids. The patient had been fairly recently in [facility] for perforated bowel which was treated medically. The patient now appears to be developing abscess over the right upper part of the abdomen. She started deteriorating over the past couple of weeks. It was determined that patient needed to be admitted to the hospital for more definitive management. The patient has seen Dr. Waddell in consultation who felt that she would need surgery but had set this up for three weeks [address]. The patient is not tolerating this at this time so she has been admitted to the hospital. Patient was found to abdominal wall abscess and had JANES drain placed by surgery. Patient was started on vanc and zosyn for abscess. She was still feeling unwell and was noted to be anemic. Patient was started on TPN for nutrition and was tolerating boullon PO. Patient was having episodes of diarhhea. Patient had critical potassium of 2.8 on 06/11/19 and had potassium repletion. Patient's potassium on 06/12/19 was critically high at 6.7. Calcium gluconate and kayaxlate were ordered stat. Patient was placed on telemetry. Repeat BMP was ordered. While patient was being monitored on tele she started have a herman arrthymia in the 30s but was asymptomatic. Stat ekg and blood pressure were ordered. Ekg showed afib and herman. Patient was hypotensive 80/50s. Patient's tele strip showed peaked t waves not noted on ekg. Patient was given insulin with dextrose. TPN was stopped. IV fluids of d5 with Normal Saline were started. Patient was started on a albuterol tx. Patient' s continued being hypotensive and bradycardic. She was transfered to ICU for closer monitoring. Patient was given second dose of calcium gluconate. She was started on dopamine pressor. Repeat BMP showed potassium has trended down to 5.9. Patient received second dose of kayexlate. Will continue to monitor BMPs and will hold potassium supplementation at this time. It was felt that patient would likely require CRRT as she had developed decreased urine output overnight with worsening output during the day. Patient has developed RIMA as well with elevated Cr of 2.43 in addition to her decreased urine output. Patient had a repeat BMP prior to transfer which showed Cr of 2.41 and K of 6.1. Dr Adams was contacted and patient was discussed with him. Dr Adams felt patient would benefit from transfer and patient requested to be transferred to [place]. Patient will likely need to have surgery consulted there as well to follow her. Dr Brewster at [facility] accepted admission of patient. - Vitals & Intake/Output Vital Signs: Vital Signs Temperature 97.6 F 06/12/19 12:00 Pulse Rate 43 L 06/12/19 17:00 Respiratory Rate 15 06/12/19 17:00 Blood Pressure 99/48 06/12/19 17:00 O2 Sat by Pulse Oximetry 93 L 06/12/19 17:00 Oxygen-Last Documented O2 Percentage 4 Liters = 36% Intake & Output: Intake & Output 06/10/19 06/11/19 06/12/19 06/13/19 11:59 11:59 11:59 11:59 Intake Total 2017 3995 5672 1350 Output Total 400 530 90 450 Balance 1617 4295 0951 900 Weight 97.7 kg 102.8 kg 102.6 kg 108 kg - Lab Result Diagrams: 06/12/19 05:37 06/12/19 16:56 Lab Results-Last 24 Hrs: Accuchecks Date 06/12/19 Date 06/11/19 Time 03:00 Time 21:00 Accucheck Value: 122 Accucheck Value: 133 Lab Results-Last 24 Hours 06/12/19 06/12/19 06/12/19 Range/Units 05:37 05:37 05:37 WBC 6.9 (4.0-10.5) K/mm3 RBC 2.87 L (4.1-5.4) M/mm3 Hgb 8.3 L (12.0-16.0) gm/dl Hct 27.5 L (35-47) % MCV 95.8 (78-100) fl MCH 28.9 (26-32) pg MCHC 30.2 L (32-36) g/dl RDW 16.1 H (11.5-14.0) % Plt Count 129 L (150-450) K/mm3 MPV 10.4 H (6-9.5) fl Gran % 78.1 H (36.0-66.0) % Eos # (Auto) 0.14 (0-0.5) Absolute Lymphs (auto) 0.83 L (1.0-4.6) Absolute Monos (auto) 0.53 (0.0-1.3) Lymphocytes % 12.1 L (24.0-44.0) % Monocytes % 7.7 (0.0-12.0) % Eosinophils % 2.0 (0.00-5.0) % Basophils % 0.1 (0.0-0.4) % Absolute Granulocytes 5.35 (1.4-6.9) Basophils # 0.01 (0-0.4) Sodium 128 L (137-145) mmol/L Potassium 6.7 H* (3.5-5.1) mmol/L Chloride 103 (98-107) mmol/L Carbon Dioxide 22 (22-30) mmol/L Anion Gap 10.3 (5-15) MEQ/L BUN 57 H (7-17) mg/dL Creatinine 2.37 H 2.37 H (0.52-1.04) mg/dL Estimated GFR 22.0 22.0 ML/MIN Glucose 97 (74-106) mg/dL Calcium 8.3 L (8.4-10.2) mg/dL NT-Pro-B Natriuret Pep (0-900) pg/mL 06/12/19 06/12/19 06/12/19 Range/Units 12:30 12:45 14:36 WBC (4.0-10.5) K/mm3 RBC (4.1-5.4) M/mm3 Hgb (12.0-16.0) gm/dl Hct (35-47) % MCV (78-100) fl MCH (26-32) pg MCHC (32-36) g/dl RDW (11.5-14.0) % Plt Count (150-450) K/mm3 MPV (6-9.5) fl Gran % (36.0-66.0) % Eos # (Auto) (0-0.5) Absolute Lymphs (auto) (1.0-4.6) Absolute Monos (auto) (0.0-1.3) Lymphocytes % (24.0-44.0) % Monocytes % (0.0-12.0) % Eosinophils % (0.00-5.0) % Basophils % (0.0-0.4) % Absolute Granulocytes (1.4-6.9) Basophils # (0-0.4) Sodium 125 L 127 L (137-145) mmol/L Potassium 6.0 H 5.9 H (3.5-5.1) mmol/L Chloride 100 102 (98-107) mmol/L Carbon Dioxide 21 L 20 L (22-30) mmol/L Anion Gap 9.9 12.2 (5-15) MEQ/L BUN 58 H 60 H (7-17) mg/dL Creatinine 2.41 H 2.43 H (0.52-1.04) mg/dL Estimated GFR 21.6 21.4 ML/MIN Glucose 229 H 63 L (74-106) mg/dL Calcium 8.1 L 8.9 (8.4-10.2) mg/dL NT-Pro-B Natriuret Pep 08073 H (0-900) pg/mL Micro Results-Entire Visit: Microbiology 06/10/19 08:35 Blood Culture - Preliminary Blood NO GROWTH TO DATE 06/10/19 08:25 Blood Culture - Preliminary Blood NO GROWTH TO DATE 06/09/19 21:02 Urine Culture - Final Urine, Void <10K NORMAL SKIN JOMAR PROBABLE SKIN CONTAMINANT Accuchecks Date 06/12/19 Date 06/11/19 Time 03:00 Time 21:00 Accucheck Value: 122 Accucheck Value: 133 - Radiology Exams Ordered Rad Exams-Entire Visit: Radiology Procedures Category Date Time Status ABDOMEN AND PELVIS W/0 CONTRAS [CT] Routine Exams 06/13/19 07:00 Ordered ABDOMEN AND PELVIS W/0 CONTRAS [CT] Routine Exams 06/13/19 07:00 Stop Req ABDOMEN AND PELVIS W/0 CONTRAS [CT] Routine Exams 06/13/19 07:[address] GUIDED ABSCESS DRAINAGE [CT] Routine Exams 06/10/19 19:18 Completed - Procedures and Test Procedures and Tests throughout Hospitalization: Therapy Orders & Screens 06/09/19 11:23 OT Screen per Nursing Assess ONCE Comment: Protocol Order Physician Instructions: Greater than 3 points order OT Admission Screening Reason For Exam: Triggered on Admission Diagnosis: Abdominal wall abcess Open Wound/Cellutlitis/Pressure Ulcers: No Acute Fx/ORIF/Change in wt bearing status: No Severe MUSCULOSKELETAL pain: No ADL Dysfunction: Yes Acute CVA w/Hemiparesis/Hemiplegia: No Decreased Functional Mobility/Strength: Yes Sprain/Strain: No Acute Post-op Mobility Dysfunction: No Total Points: 4 PT Screen per Nursing Assess ONCE Comment: Protocol Order Physician Instructions: Greater than 3 points order PT Admission Screenin Reason For Exam: Triggered on Admission Diagnosis: Abdominal wall abcess Open Wound/Cellutlitis/Pressure Ulcers: No Acute Fx/ORIF/Change in wt bearing status: No Severe MUSCULOSKELETAL pain: No ADL Dysfunction: Yes Acute CVA w/Hemiparesis/Hemiplegia: No Decreased Functional Mobility/Strength: Yes Sprain/Strain: No Acute Post-op Mobility Dysfunction: No Total Points: 4 RT Screen per Nursing Assess ONCE Comment: Protocol Order Physician Instructions: Greater than 3 points order RT Admission Screen Reason For Exam: Triggered on Admission Diagnosis: Abdominal wall abcess Diagnosis: Abdominal wall abcess Pneumonia: No Home O2: Yes Asthma: Yes CHF: Yes Home CPAP/BIPAP: Yes Home Nebs/MDI: Yes Total Points: 22 Smoking Cessation Education ONCE Comment: Diagnosis: Abdominal wall abcess Smoking Status: Current every day smoker How long have you smoked: 45 Have you smoked in the past 12 months: Yes Approximately how many cigarettes per day: 1/2 PPD Do you dip or chew tobacco: No If,Former Smoker,when did you quit: 10/05/1915 06/09/19 12:00 Oxygen Nasal Cannula 4 lpm Comment: PER HOME USE Diagnosis: Abdominal wall abcess Respiratory Therapy Assessment DAILY Comment: Diagnosis: Abdominal wall abcess 06/10/19 07:00 Respiratory MDI UD Comment: BREO DAILY IN AM Diagnosis: Abdominal wall abcess 06/12/19 11:52 EKG STAT Comment: Diagnosis: ABDOMINAL WALL ABCESS, ABD PAIN Discharge Exam General Appearance: other (Patient has been alert through most of the day but is more sleepy at this time.) Neurologic Exam: alert, cooperative Eye Exam: eyes nml inspection Neck Exam: normal inspection Respiratory Exam: normal breath sounds, lungs clear, No crackles/rales, No rhonchi, No wheezing Cardiovascular Exam: normal heart sounds, No regular rate/rhythm (Irregularly irregular herman) Gastrointestinal/Abdomen Exam: soft, normal bowel sounds, tenderness (Janes drain with brown sludge) Extremity Exam: normal inspection, No pedal edema Skin Exam: normal color, warm, dry Final Diagnosis/Problem List - Final Discharge Diagnosis/Problem (1) Abdominal wall abscess Current Visit: Yes Status: Acute Assessment & Plan: JANES drain is still draining brownish sludge however. The drainage appears to have slowed some. Patient was receiving IV antibiotics including vanc but they had to be held temporarily due to RIMA. May need to choose different antibiotic therapy depending on patient's kidney function overnight. Patient being transferred to [facility]. Will need consult for surgery Dr Waddell and Dr Holland Code(s): L02.211 - CUTANEOUS ABSCESS OF ABDOMINAL WALL (2) Acute abdominal pain Current Visit: Yes Status: Acute Code(s): R10.9 - UNSPECIFIED ABDOMINAL PAIN (3) Anemia Current Visit: No Status: Acute Code(s): D64.9 - ANEMIA, UNSPECIFIED (4) Hyponatremia Current Visit: Yes Status: Acute Code(s): E87.1 - HYPO-OSMOLALITY AND HYPONATREMIA (5) Hyperkalemia Current Visit: Yes Status: Acute Assessment & Plan: Patient has not responded well to therapies for hyperkalemia. Patient will likely require CRRT. Patient being transferred to [place] and nephrology has been consulted. Code(s): E87.5 - HYPERKALEMIA (6) RIMA (acute kidney injury) Current Visit: Yes Status: Acute Assessment & Plan: Patient's cr has trended up. Potentially related to vanc induced nephrotoxicity. Patient also received one dose of lasix to see if that would lower her hyperkalemia and to see if she would increase her urine output. Will continue to monitor creatinine level. Patient may require CRRT for acute kidney injury if Cr doesnt start trending down and she continues to have decreased output. Discussed case with Dr Adams who agreed with transfer. Code(s): N17.9 - ACUTE KIDNEY FAILURE, UNSPECIFIED - Discharge Disposition: DC TO [facility] Condition: Serious Prescriptions: No Action Escitalopram Oxalate [Lexapro] 20 mg PO DAILY Albuterol 2.5 mg/3 ml Neb [Proventil 2.5 mg/3 ml Neb] 2.5 mg IH QIDPRN PRN PRN Reason: Shortness Of Breath Furosemide 40 mg [Lasix 40 MG] 40 mg PO BID PRN PRN Reason: swelling Fluticasone/Vilanterol [Breo Ellipta 100-25 Mcg INH] 1 mcg IH DAILY Ergocalciferol (Vitamin D2) [Vitamin D] 1 cap PO WEEKLY Ferrous Sulfate [Iron] 325 mg PO DAILY Gabapentin 300 mg PO HS Promethazine HCl 25 mg [Phenergan 25 mg] 25 mg PO Q6H PRN PRN PRN Reason: Nausea/Vomiting PANTOPRAZOLE 40 mg Tablet [Protonix 40MG Tablet] 40 mg PO DAILY Famotidine [Pepcid] 40 mg PO DAILY Potassium Chloride 10 Meq Tab* [Klor Con 10 MEQ] 1 tab DAILY Clindamycin HCl [Cleocin HCl] 300 mg PO TID 10 Days capsule Additional Instructions: Patient needs ICU bed. Please let Dr Adams know when patient gets there. Please have consult placed for Bairon norris who has been following patient at [facility] Follow up with: DIANA RICHARDS [Primary Care Provider] - 1 Week
[2019-06-12 17:10] LABS: Potassium 6.1 mmol/L (3.5-5.1)
[2019-06-12] MEDS ORDERED: Sodium Chloride 0.9% 1000 ML 1,000 ML IV STA (18:05)
[2019-06-12] MEDS ORDERED: LEVOPHED 4 MG/4 ML 4,000 MCG in Dextrose 5%/Water IV Soln. 500 ML 500 ML IV PRN (18:05)
[2019-06-12] MEDS ORDERED: Sodium Chloride 0.9% 1000 ML 1,000 ML ONE (18:09)
[2019-06-12 18:58] VITALS: BP 100/56; PULSE 45
[2019-06-13] MEDS ORDERED: TROUGH DRUG LEVELS IJ ONE (15:30)
== END 2019-06-12 19:05 | disposition home or self-care (01) | DRG 603 ==
LOC: MED SURG 10:29 → OBSVTOIN 06-11 11:30 → ICU 06-12 12:41
PROVIDERS: ADMIT Family Medicine; ATTEND Family Medicine
DX: L02.211 Cutaneous abscess of abdominal wall (principal); E87.1 Hypo-osmolality and hyponatremia; N17.9 Acute kidney failure, unspecified; R10.9 Unspecified abdominal pain; D64.9 Anemia, unspecified; E87.5 Hyperkalemia; Z79.899 Other long term (current) drug therapy; R53.1 Weakness; E11.9 Type 2 diabetes mellitus without complications; J44.9 Chronic obstructive pulmonary disease, unspecified; Z99.81 Dependence on supplemental oxygen; R51 Headache; I48.91 Unspecified atrial fibrillation; I95.9 Hypotension, unspecified
CPT/HCPCS: 36415; 36569; 49405; 74176; 76937; 77001; 80048; 80053; 81001; 82040; 82565; 82962; 83735; 83880; 84134; 84155; 85025; 85027; 87040; 87086; 93005; 94640; 94760; 96365; 99211; C1769; G0378; J0610; J1265; J1642; J1756; J1885; J1940; J2405; J2543; J2550; J3370; J7609; A9270-GY